=== PATIENT | male | born 1945 | race Caucasian/White ===

== ENCOUNTER 2023-03-07 13:55 | Inpatient (IN) | payer MEDICARE, OTHER, SELFPAY ==
[2023-03-07 14:42] VITALS: BP 148/82; PULSE 73; RESP 18; TEMP 36.7; O2SAT 93; BMI 39.5
[2023-03-07 15:07] LABS: Basophils Percent Auto 0.2 % (0.2-2.0); Eosinophils Absolute Auto 0.1 10^3/uL (0.0-0.7); Eosinophils Percent Auto 1.9 % (0.9-7.0); Hematocrit 41.8 % (42.0-54.0); Hemoglobin 14.3 g/dL (14.0-18.0); Immature Granulocytes Abs Auto 0.02 10^3/uL (0.00-0.03); Immature Granulocytes Pct Auto 0.3 % (0.0-0.5); Lymphocytes Absolute Auto 1.4 10^3/uL (1.2-3.8); Lymphocytes Percent Auto 23.1 % (20.5-60.0); Mean Corpuscular HGB Conc 34.2 g/dL (29.9-35.2); Mean Corpuscular Hemoglobin 32.8 pg (25.9-34.0); Mean Corpuscular Volume 95.9 fL (80.0-94.0); Mean Platelet Volume 9.3 fL (9.5-13.5); Monocytes Absolute Auto 0.7 10^3/uL (0.3-0.8); Monocytes Percent Auto 12.5 % (1.7-12.0); Neutrophils Absolute Auto 3.7 10^3/uL (1.4-6.5); Platelet Count 253 10^3/uL (150-450); Red Blood Count 4.36 10^6/uL (4.70-6.10); Red Cell Distribution Width 12.8 % (11.0-15.0); White Blood Count 5.9 10^3/uL (4.0-11.0)
--- NOTE | 2023-03-07 15:35 | US_ITS ---
The [address] [address] Patient Name: ZABRINA BRAY MRN: [id number] date: 1945 Sex: M Assigned Patient Location: MS Current Patient Location: MS Accession/Order Number: [id number] Exam Date: 03/07/2023 15:40 Report Date: 03/07/2023 16:39 At the request of: NEVIN MORA Procedure: US venous doppler LE BI Ultrasound venous duplex scan, bilateral lower extremities CLINICAL: Bilateral leg swelling for 3 months. TECHNIQUE: Miller-scale, color-flow, and Doppler examination of both legs was performed with and without provocative maneuvers. FINDINGS: Comparison: None. Sonographic examination of both lower extremity deep venous systems to include the common femoral veins, superficial femoral veins, and popliteal veins demonstrates normal compressibility, color-flow, phasic variation, and augmentation. Normal color-flow at the origins of the proximal profunda femoris veins. There is normal color-flow in the anterior tibial, posterior tibial, and peroneal veins on both sides. There is significant subcutaneous edema of both calves and also mild edema in both popliteal fossa. US/US venous doppler LE BI IMPRESSION: 1. No sonographic evidence of deep venous thrombosis in either lower extremity. 2. Significant subcutaneous edema of both calves. Electronically authenticated by: STEPHAN MARTINEZ Date: 03/07/2023 16:39
[2023-03-07 15:36] LABS: Lactate/Lactic Acid 1.1 mmol/L (0.4-2.0)
[2023-03-07 15:43] LABS: Alanine Aminotransferase 45 U/L (16-63); Albumin Globulin Ratio 0.8; Albumin Level 3.4 g/dL (3.4-5.0); Alkaline Phosphatase 72 U/L (46-116); Anion Gap 12.8; Aspartate Amino Transferase 29 U/L (15-37); BUN Creatinine Ratio 22.2; Bilirubin Total 0.5 mg/dL (0.2-1.0); C Reactive Protein <0.2 mg/dL (<=1.0); Calcium 9.5 mg/dL (8.5-10.1); Carbon Dioxide 26.2 mmol/L (21.0-32.0); Chloride 101 mmol/L (98-107); Estimated GFR (African America >60 (>=60); Estimated GFR (Non-African Ame >60 (>=60); Globulin 4.3 g/dL; Glucose 150 mg/dL (74-106); Sodium 136 mmol/L (136-145); Total Protein 7.7 g/dL (6.4-8.2)
[2023-03-07 15:44] LABS: Free T3 2.81 pg/mL (2.18-3.98); Troponin I High Sensitivity 17.9 pg/mL (4.0-76.1)
[2023-03-07] MEDS: 0.9 % SODIUM CHLORIDE 250 ML 30 ML IV (16:00)
[2023-03-07] MEDS: CIPROFLOXACIN IN 5 % DEXTROSE 400 MG/200 ML PIGGYBACK 200 MG IV (16:00)
[2023-03-07] MEDS: BUMETANIDE 10 MG in 0.9 % SODIUM CHLORIDE 160 ML 20 MG IV (17:22)
[2023-03-07 19:32] VITALS: RESP 18
[2023-03-07 20:44] VITALS: BP 164/81; PULSE 94; RESP 18; TEMP 36.8; O2SAT 91
[2023-03-07] MEDS: ACETAMINOPHEN 500 MG TABLET 1000 MG PO (20:47)
[2023-03-07] MEDS: L. ACIDOPHILUS/L.BULGARICUS 1 PACKET GRAN.PACK PO (20:47)
[2023-03-07] MEDS: POTASSIUM CHLORIDE 10 MEQ ER TABLET 20 MEQ PO (20:47)
[2023-03-07] MEDS: METOPROLOL TARTRATE 25 MG TABLET 12.5 MG PO (20:47)
[2023-03-07] MEDS: ATORVASTATIN CALCIUM 40 MG TABLET 80 MG PO (20:56)
--- NOTE | 2023-03-07 23:48 | PC.NURSE ---
Patient leaking around dalton. Noted several various sizes of clots. deflated balloon and readjusted catheter. After doing so noted increased stringy long clots irrigated with 60ml of sterile fluid. Urine flowing clear yellow for a few minutes then turned light pink
[2023-03-08 00:23] LABS: Hematocrit 40.5 % (42.0-54.0); Hemoglobin 13.9 g/dL (14.0-18.0)
[2023-03-08] MEDS: SODIUM CHLORIDE 0.9% 3,000 ML IRRIG SOLN 3000 ML IRR ×9 (01:49→18:36)
--- NOTE | 2023-03-08 01:52 | PC.NURSE ---
Urine noted pink-redish color no clots
[2023-03-08] MEDS: HYOSCYAMINE SULFATE 0.125 MG TAB.SUBL SL ×2 (03:40→18:37)
[2023-03-08] MEDS: ACETAMINOPHEN 500 MG TABLET 1000 MG PO (03:40)
[2023-03-08 04:08] VITALS: O2SAT 95
[2023-03-08 05:09] VITALS: BP 163/82; PULSE 81; RESP 20; TEMP 36.6; O2SAT 91
[2023-03-08 06:06] LABS: Basophils Percent Auto 0.1 % (0.2-2.0); Eosinophils Absolute Auto 0.1 10^3/uL (0.0-0.7); Eosinophils Percent Auto 0.8 % (0.9-7.0); Hematocrit 40.8 % (42.0-54.0); Hemoglobin 13.7 g/dL (14.0-18.0); Immature Granulocytes Abs Auto 0.03 10^3/uL (0.00-0.03); Immature Granulocytes Pct Auto 0.4 % (0.0-0.5); Lymphocytes Absolute Auto 1.3 10^3/uL (1.2-3.8); Lymphocytes Percent Auto 18.3 % (20.5-60.0); Mean Corpuscular HGB Conc 33.6 g/dL (29.9-35.2); Mean Corpuscular Hemoglobin 32.2 pg (25.9-34.0); Mean Platelet Volume 9.1 fL (9.5-13.5); Monocytes Absolute Auto 0.9 10^3/uL (0.3-0.8); Neutrophils Absolute Auto 4.9 10^3/uL (1.4-6.5); Neutrophils Percent Auto 68.4 % (43.0-75.0); Platelet Count 247 10^3/uL (150-450); Red Blood Count 4.25 10^6/uL (4.70-6.10); Red Cell Distribution Width 12.8 % (11.0-15.0); White Blood Count 7.1 10^3/uL (4.0-11.0)
[2023-03-08 06:10] LABS: Anion Gap 13.9; BUN Creatinine Ratio 15.2; Calcium 8.8 mg/dL (8.5-10.1); Carbon Dioxide 31.4 mmol/L (21.0-32.0); Chloride 97 mmol/L (98-107); Estimated GFR (African America >60 (>=60); Estimated GFR (Non-African Ame >60 (>=60); Glucose 180 mg/dL (74-106); Potassium 3.3 mmol/L (3.5-5.1); Sodium 139 mmol/L (136-145)
--- NOTE | 2023-03-08 07:21 | P.PN_ITS ---
Progress Note: Subjective Subjective Interval history: Admitted from the office with failed outpatient treatment of lower bilateral lower extremity cellulitis. Overnight had issues with bladder distention, over 500 cc postvoid, Zhou catheter placed, bleeding ensued, consultation placed to urology and a three-way catheter was instituted with continuous bladder irrigation. That overall is improving. No other complaints this morning other than he did not sleep last night Exam Constitutional Vital Signs, click to edit/add: Last Vital Signs Temp 98 F 03/08/23 05:09 Pulse 81 03/08/23 05:09 Resp 20 03/08/23 05:09 BP 163/82 H 03/08/23 05:09 Pulse Ox 91 L 03/08/23 05:09 O2 Del Method Room Air 03/08/23 05:09 Documenting provider has reviewed patient's vital signs: yes Common normals: no apparent distress Chest Common normals: inspection of chest normal Respiratory Common normals: normal respiratory effort, no retractions and clear to auscultation bilaterally Cardio Common normals: regular rate, regular rhythm and no murmurs Extremity Other: Lower extremities with the cellulitis bilaterally, less swelling, less calor, less rubor Progress Note: Objective Labs Labs: Short CBC 03/07/23 03/08/23 03/08/23 Range/Units 14:42 00:12 05:38 WBC 5.9 7.1 (4.0-11.0) 10^3/uL Hgb 14.3 13.9 L 13.7 L (14.0-18.0) g/dL Hct 41.8 L 40.5 L 40.8 L (42.0-54.0) % Plt Count 253 247 (150-450) 10^3/uL BMP 03/07/23 03/08/23 14:42 05:38 Sodium 136 139 Potassium 4.0 3.3 L Chloride 101 97 L Carbon Dioxide 26.2 31.4 BUN 18.0 16.0 Creatinine 0.81 1.05 Glucose 150 H 180 H Calcium 9.5 8.8 Liver Function 03/07/23 Range/Units 14:42 Total Bilirubin 0.5 (0.2-1.0) mg/dL AST 29 (15-37) U/L ALT 45 (16-63) U/L Alkaline Phosphatase 72 (46-116) U/L Albumin 3.4 (3.4-5.0) g/dL Progress Note: A&P Assessment and Plan (1) Bilateral lower leg cellulitis: (2) Hx of CABG: (3) Hematuria: (4) Bladder outlet obstruction: (5) Iron deficiency anemia: Plan Bilateral lower extremity cellulitis-DVT ruled out by ultrasound, was placed on cephalexin as an outpatient. Change patient to clindamycin and Cipro here IV. If effective can be transition to that p.o. starting tomorrow Fluid overload-Bumex drip effective with 4 L out. No heart failure-BNP was negative. Continue diuresis today Hematuria-secondary to bladder outlet obstruction and bladder distention, improving with CBI, consult to urology placed Hypokalemia-supplement Patient initially placed in observation, now with hematuria and CBI, patient will be changed to inpatient status. Patient likely 2 to 3-day hospital stay as a minimum
[2023-03-08 08:17] LABS: INR 1.06; Partial Thromboplastin Time 28.4 sec (22.3-36.2); Prothrombin Time 11.2 sec (9.0-11.6)
[2023-03-08] MEDS: L. ACIDOPHILUS/L.BULGARICUS 1 PACKET GRAN.PACK PO ×2 (08:24→21:08)
[2023-03-08] MEDS: FISH OIL 1,000 MG CAPSULE 1000 MG PO (08:25)
[2023-03-08] MEDS: ASCORBIC ACID 500 MG TABLET PO (08:25)
[2023-03-08] MEDS: METOPROLOL TARTRATE 25 MG TABLET 12.5 MG PO ×2 (08:25→21:21)
[2023-03-08] MEDS: POTASSIUM CHLORIDE 10 MEQ ER TABLET 20 MEQ PO ×2 (08:25→21:08)
[2023-03-08] MEDS: CHOLECALCIFEROL (VITAMIN D3) 25 MCG/1,000 UNITS TABLET 100 MCG PO (08:25)
[2023-03-08] MEDS: MULTIVITAMIN TABLET 1 TAB PO (08:25)
[2023-03-08] MEDS: BUMETANIDE 10 MG in 0.9 % SODIUM CHLORIDE 160 ML 20 MG IV (08:26)
[2023-03-08] MEDS: OXYBUTYNIN chloride 5 MG TABLET 10 MG PO ×2 (09:26→21:08)
--- NOTE | 2023-03-08 10:51 | CM.NOTE ---
Important Message From Medicare discussed with pt, pt verbalizes understanding and signs paper. Original given to pt and copy placed on pt's chart.
[2023-03-08 11:08] LABS: Glucometer 143 mg/dL (74-106)
[2023-03-08 11:18] VITALS: O2SAT 92
--- NOTE | 2023-03-08 11:23 | CT_ITS ---
[address] [address] Patient Name: ZABRINA BRAY MRN: [id number] date: 1945 Sex: M Assigned Patient Location: MS Current Patient Location: Accession/Order Number: [id number] Exam Date: 03/08/2023 15:05 Report Date: 03/08/2023 16:09 At the request of: CARLO ALDANA Procedure: CT abdomen pelvis wo/w con Waiting for axial delayed phase images. EXAM: CT abdomen pelvis wo/w con; [id number] REASON FOR EXAM: hematuria TECHNIQUE: Helical CT images of the abdomen and pelvis were obtained both before and after the administration of IV contrast. Multiplanar reformats were generated at the scanner. Dose reduction technique used: Automated exposure control and/or adjustment of the mA and/or kV according to patient size and/or use of iterative reconstruction technique. COMPARISON: None. FINDINGS: Visualized Chest: No pleural effusion or any significant pulmonary findings. Abdomen: Liver: Within normal limits. No enhancing mass. Gallbladder: No calcified gallstones. No acute inflammatory changes. Bile Ducts: No significant biliary ductal dilatation. Pancreas: No mass, ductal dilatation, or inflammatory changes. Spleen: No splenomegaly or focal lesion. Adrenals: -Low-density benign left adrenal adenoma measuring 18 x 11 mm (series 10 image 38). -No right adrenal nodule. Kidneys/ureters: -Nonobstructing 4 mm stone in the lower pole of the left kidney. Additional punctate nonobstructing stone in the lower pole of the left kidney. -Benign nonenhancing left renal cyst measuring 14 mm (series 10 image 57). -No enhancing mass. -No hydronephrosis. -No suspicious filling defect within the intrarenal collecting systems or within the opacified portions of the kidneys or bladder. Vascular: No aortic aneurysm. Lymph Nodes: No adenopathy. Abdominal Wall: Small fat-containing bilateral inguinal hernias and medium sized fat-containing periumbilical hernia. Pelvis: The bladder is decompressed with a Zhou catheter. Bladder stone. Enlarged prostate. Bowel/Peritoneal Cavity/Mesentery: -No enhancing mass. -No bowel obstruction or significant ileus. -No acute inflammatory changes. -No free air or free fluid. Musculoskeletal: No acute fracture or suspicious osseous lesion. CT/CT abdomen pelvis wo/w con IMPRESSION: 1. There are 2 small nonobstructing stones in the left kidney. 2. No suspicious filling defect within the upper urinary collecting systems. Electronically authenticated by: GHULAM PAGE Date: 03/08/2023 16:09
[2023-03-08 13:58] VITALS: BP 113/68; PULSE 106; RESP 18; TEMP 36.8; O2SAT 95
[2023-03-08] MEDS: CIPROFLOXACIN IN 5 % DEXTROSE 400 MG/200 ML PIGGYBACK 200 MG IV (16:21)
[2023-03-08 16:39] LABS: Glucometer 226 mg/dL (74-106)
[2023-03-08] MEDS: CLINDAMYCIN PHOSPHATE/D5W 600 MG/50 ML PIGGYBACK 100 MG IV (18:33)
[2023-03-08 19:55] VITALS: O2SAT 93
[2023-03-08] MEDS: CALCIUM CARBONATE 500 MG (200MG ELEMENTAL) TAB CHEW 1000 MG PO (20:02)
[2023-03-08] MEDS: TEMAZEPAM 15 MG CAPSULE PO (21:08)
[2023-03-08] MEDS: ATORVASTATIN CALCIUM 40 MG TABLET 80 MG PO (21:08)
[2023-03-08 21:09] LABS: Glucometer 203 mg/dL (74-106)
[2023-03-08 21:16] VITALS: BP 141/90; PULSE 110; RESP 20; TEMP 37; O2SAT 92
[2023-03-09] MEDS: CLINDAMYCIN PHOSPHATE/D5W 600 MG/50 ML PIGGYBACK 100 MG IV ×2 (00:17→05:09)
[2023-03-09] MEDS: 0.9 % SODIUM CHLORIDE 250 ML 30 ML IV (00:18)
[2023-03-09 05:26] VITALS: BP 135/77; PULSE 90; RESP 18; TEMP 36.7; O2SAT 91
[2023-03-09 07:41] LABS: Glucometer 187 mg/dL (74-106)
--- NOTE | 2023-03-09 07:50 | P.PN_ITS ---
Progress Note: Subjective Subjective Interval history: Had a good night overnight, slept well, although patient notes the swelling is improved in his legs overall sensation has not improved Exam Constitutional Vital Signs, click to edit/add: Last Vital Signs Temp 98.0 F 03/09/23 05:26 Pulse 90 03/09/23 05:26 Resp 18 03/09/23 05:26 BP 135/77 03/09/23 05:26 Pulse Ox 91 L 03/09/23 05:26 O2 Del Method Room Air 03/09/23 05:26 Documenting provider has reviewed patient's vital signs: yes Common normals: no apparent distress Chest Common normals: inspection of chest normal Respiratory Common normals: normal respiratory effort, no retractions and clear to auscultation bilaterally Cardio Common normals: regular rate, regular rhythm and no murmurs Extremity Other: Lower extremities with the cellulitis bilaterally, swelling improved from admission but the erythema has not changed from previous day Progress Note: A&P Assessment and Plan (1) Bilateral lower leg cellulitis: (2) Hx of CABG: (3) Hematuria: (4) Bladder outlet obstruction: (5) Iron deficiency anemia: Plan Bilateral lower extremity cellulitis-DVT ruled out by ultrasound, was placed on cephalexin as an outpatient. Does have some slight improvement from admission but no improvement from previous day, will change antibiotics today. Likely 2 more day hospitalization Fluid overload-Bumex drip effective with 12 L out-change patient to IV Lasix, that is what he takes at home and his oral Lasix. Hematuria-secondary to bladder outlet obstruction and bladder distention, improving with CBI, consult to urology placed Hypokalemia-supplement Iron deficient anemia-monitor daily is down somewhat today Patient initially placed in observation, now with hematuria and CBI, patient will be changed to inpatient status. Patient likely 2 to 3-day hospital stay as a minimum
[2023-03-09] MEDS: MULTIVITAMIN TABLET 1 TAB PO (08:08)
[2023-03-09] MEDS: FUROSEMIDE 40 MG/4 ML VIAL IVP ×2 (08:08→20:06)
[2023-03-09] MEDS: METOPROLOL TARTRATE 25 MG TABLET 12.5 MG PO ×2 (08:09→20:08)
[2023-03-09] MEDS: FISH OIL 1,000 MG CAPSULE 1000 MG PO (08:09)
[2023-03-09] MEDS: ASCORBIC ACID 500 MG TABLET PO (08:09)
[2023-03-09] MEDS: OXYBUTYNIN chloride 5 MG TABLET 10 MG PO ×2 (08:09→20:09)
[2023-03-09] MEDS: POTASSIUM CHLORIDE 10 MEQ ER TABLET 20 MEQ PO ×2 (08:09→20:08)
[2023-03-09] MEDS: L. ACIDOPHILUS/L.BULGARICUS 1 PACKET GRAN.PACK PO ×2 (08:09→20:09)
[2023-03-09] MEDS: CHOLECALCIFEROL (VITAMIN D3) 25 MCG/1,000 UNITS TABLET 100 MCG PO (08:09)
[2023-03-09 08:25] LABS: Anion Gap 7.4; BUN Creatinine Ratio 19.4; Calcium 9.7 mg/dL (8.5-10.1); Carbon Dioxide 34.8 mmol/L (21.0-32.0); Chloride 94 mmol/L (98-107); Estimated GFR (African America >60 (>=60); Estimated GFR (Non-African Ame >60 (>=60); Glucose 155 mg/dL (74-106); Potassium 3.2 mmol/L (3.5-5.1); Sodium 133 mmol/L (136-145)
[2023-03-09] MEDS: VANCOMYCIN HCL 1,250 MG in 0.9 % SODIUM CHLORIDE 250 ML 250 MG IV (09:28)
[2023-03-09 10:51] VITALS: O2SAT 92
[2023-03-09 11:03] LABS: Glucometer 159 mg/dL (74-106)
[2023-03-09] MEDS: PIPERACILLIN SODIUM/TAZOBACTAM 3.375 GM in 0.9 % SODIUM CHLORIDE 50 ML IV ×2 (11:30→20:06)
[2023-03-09 14:15] VITALS: BP 127/73; PULSE 85; RESP 18; TEMP 36.9; O2SAT 86
[2023-03-09 14:30] VITALS: O2SAT 93
[2023-03-09 16:02] LABS: Glucometer 130 mg/dL (74-106)
--- NOTE | 2023-03-09 16:11 | PM.CN ---
Consult Note: [facility] Data of Consult Consult date: 03/09/23 Requesting Physician: Dexter Rodriguez MD Primary Care Provider: Dexter Rodriguez MD Consult Narrative Reason for consult: gross hematuria Narrative: 77 yo old male with history of BPH with LUTS/nocturia and recurrent cellulitis is admitted with failed outpatient treatment of lower bilateral lower extremity cellulitis. He is being managed with IV antibiotics and diuretics. His first night, he developed bladder distention, over 500 cc postvoid, Dalton catheter placed, gross hematuria was noted. A 24Fr 3way dalton catheter was inserted by nursing staff, manually irrigated and CBI was started. CT Urogram was obtained showing no upper tract or bladder filling defects concerning for malignancy. 4 mm left lower pole stone, additional few punctate stones. Denies UTI sx however no UA or culture noted. Labs wnl His urine has cleared on CBI, currently off. He denies bladder/flank pain or new urinary issues. Denies prior hematuria. Baseline frequency and nocturia sometimes q1h at night. Not on BPH meds at home. Seen Urology in the distant past, thinks he had a prostate biopsy done. Otherwise, no urologic procedures. On Plavix, ASA for extensive CAD history, most recently had heart cath and stent placement end of January. Antiplatelet therapy currently on hold. cc:: CC: Dexter Rodriguez MD Review of Systems ROS Status of ROS 10 or more systems reviewed and unremarkable except as noted in history and below Constitutional Denies: fever or chills Eyes Denies: change in vision or blurry vision Ears, nose, mouth, and throat Denies: throat pain or difficulty swallowing Cardiovascular Reports: edema; Denies: chest pain or palpitations Respiratory Denies: shortness of breath or cough Gastrointestinal Denies: abdominal pain, nausea or vomiting Genitourinary Reports: blood in urine; Denies: painful urination Musculoskeletal Reports: extremity pain and extremity swelling; Denies: back pain Integumentary/Breast Reports: redness and skin swelling Neurological Denies: headache or numbness in extremities Psychiatric Denies: anxiety or memory loss [facility] Medical History Surgical History Family History Mother Family history of CHF (congestive heart failure) Family history of myocardial infarction Family history of hypertension Father Family history of COPD (chronic obstructive pulmonary disease) Social History Within the past year, how often did you have a drink containing alcohol: monthly or less Smoking status: Former smoker Non-prescribed substance use: denies use Meds Home Medications and Allergies Home Medications Medication Instructions Recorded Confirmed Type ascorbic acid (vitamin C) 500 mg 500 mg PO DAILY 03/07/23 03/07/23 History capsule,extended release (Vitamin C) aspirin 81 mg tablet,delayed 81 mg PO DAILY 03/07/23 03/07/23 History release (Adult Aspirin Regimen) atorvastatin 80 mg tablet 80 mg PO .at bedtime 03/07/23 03/07/23 History biotin 1 mg capsule 1 mg PO DAILY 03/07/23 03/07/23 History cholecalciferol (vitamin D3) 25 4,000 unit PO BID 03/07/23 03/07/23 History mcg (1,000 unit) capsule clopidogrel 75 mg tablet 75 mg PO DAILY 03/07/23 03/07/23 History furosemide 40 mg tablet 40 mg PO DAILY 03/07/23 03/07/23 History metoprolol tartrate 25 mg tablet 12.5 mg PO Q12H 03/07/23 03/07/23 History multivitamin (Daily Multi-Vitamin 1 tab PO DAILY 03/07/23 03/07/23 History tablet) omega 6-bov-jgj-fish oil 1,000 mg 2 cap PO DAILY 03/07/23 03/07/23 History (120 mg-180 mg) capsule (Fish Oil) Allergies Allergy/AdvReac Type Severity Reaction Status Date / Time No Known Drug Allergies Allergy Verified 03/07/23 16:25 Exam Narrative Exam Narrative: No acute distress, appears nontoxic Nonlabored respirations, symmetric chest rise, on room air Normal rate and rhythm, mild-mod BL lower ext peripheral edema Abd soft, non tender, non distended No CVA tenderness to palpation, no suprapubic tenderness palpation. 24Fr [address] dalton to gravity, clear light johnna urine in tubing, CBI inflow capped Moves all extremities, no deformities Alert and oriented x 4, no acute focal deficits Skin dry, intact. BLE venous stasis skin changes and erythema of ankles Appropriate, cooperative Constitutional Vital Signs, click to edit/add: Last Vital Signs Temp 98.5 F 03/09/23 14:15 Pulse 85 03/09/23 14:15 Resp 18 03/09/23 14:15 BP 127/73 03/09/23 14:15 Pulse Ox 86 L 03/09/23 14:15 O2 Del Method Room Air 03/09/23 14:15 Results Labs Labs: [facility] 03/09/23 07:51 Sodium 133 L Potassium 3.2 L Chloride 94 L Carbon Dioxide 34.8 H BUN 19.0 H Creatinine 0.98 Glucose 155 H Calcium 9.[address] scan - abdomen: Attestation: I personally reviewed and interpreted this imaging study as follows: My impression: No hydronephrosis or upper tract filling defects. Dalton in appropriate position. No clots or bladder tumors noted. Significantly enlarged prostate. Radiologist's impression: EXAM: CT abdomen pelvis wo/w con; [id number] REASON FOR EXAM: hematuria TECHNIQUE: Helical CT images of the abdomen and pelvis were obtained both before and after the administration of IV contrast. Multiplanar reformats were generated at the scanner. Dose reduction technique used: Automated exposure control and/or adjustment of the mA and/or kV according to patient size and/or use of iterative reconstruction technique. COMPARISON: None. FINDINGS: Visualized Chest: No pleural effusion or any significant pulmonary findings. Abdomen: Liver: Within normal limits. No enhancing mass. Gallbladder: No calcified gallstones. No acute inflammatory changes. Bile Ducts: No significant biliary ductal dilatation. Pancreas: No mass, ductal dilatation, or inflammatory changes. Spleen: No splenomegaly or focal lesion. Adrenals: -Low-density benign left adrenal adenoma measuring 18 x 11 mm (series 10 image 38). -No right adrenal nodule. Kidneys/ureters: -Nonobstructing 4 mm stone in the lower pole of the left kidney. Additional punctate nonobstructing stone in the lower pole of the left kidney. -Benign nonenhancing left renal cyst measuring 14 mm (series 10 image 57). -No enhancing mass. -No hydronephrosis. -No suspicious filling defect within the intrarenal collecting systems or within the opacified portions of the kidneys or bladder. Vascular: No aortic aneurysm. Lymph Nodes: No adenopathy. Abdominal Wall: Small fat-containing bilateral inguinal hernias and medium sized fat-containing periumbilical hernia. Pelvis: The bladder is decompressed with a Dalton catheter. Bladder stone. Enlarged prostate. Bowel/Peritoneal Cavity/Mesentery: -No enhancing mass. -No bowel obstruction or significant ileus. -No acute inflammatory changes. -No free air or free fluid. Musculoskeletal: No acute fracture or suspicious osseous lesion. CT/CT abdomen pelvis wo/w con IMPRESSION: 1. There are 2 small nonobstructing stones in the left kidney. 2. No suspicious filling defect within the upper urinary collecting systems. Electronically authenticated by: GHULAM PAGE Date: 03/08/2023 16:09 Assessment and Plan Assessment and Plan (1) Hematuria: (2) Bladder outlet obstruction: (3) Antiplatelet or antithrombotic long-term use: Assessment and Plan: 77 yo M as above with significant cardiac history on Plavix/ASA and baseline BPH with LUTS not medically managed who is admitted for BLE cellulitis treatment and developed urinary retention and gross hematuria. Discussed findings and workup with pt as well as potential etiologies of hematuria including prostatic, infection, retention, and malignancy. Given large volume PVR and negative CTU, may be hematuria ex vacuo exacerbated by dual antiplatelet therapy. Hematuria resolved on CBI. -Ok to restart Plavix/ASA due to recent heart stent (Jan 2023). If hematuria recurs, manually irrigate and restart CBI. Risk of stent clotting is high this soon after surgery, however will defer to primary/cardiology for risk vs benefit. -Tamsulosin for BPH with obstruction, cont at home -Cont dalton x 1 week or until mobility improved for pt to void at home -Follow up in 1-2 weeks for possible dalton removal/voiding trial and to schedule cystoscopy/cytology for further evaluation of hematuria.
--- NOTE | 2023-03-09 17:19 | XR_ITS ---
[address] [address] Patient Name: ZABRINA BRAY MRN: [id number] date: 1945 Sex: M Assigned Patient Location: MS Current Patient Location: MS Accession/Order Number: [id number] Exam Date: 03/09/2023 17:50 Report Date: 03/09/2023 18:17 At the request of: NEVIN MORA Procedure: XR chest 1V EXAMINATION: XR chest 1V HISTORY: Shortness of breath COMPARISON: Chest x-rays 04/27/2022 TECHNIQUE: Portable chest FINDINGS: The lung parenchyma is free of consolidation or infiltrate. No pneumothorax or pleural effusion. The cardiac, mediastinal and hilar contours are normal. The visualized osseous structures exhibit no gross abnormality. XR/XR chest 1V IMPRESSION: No acute cardiopulmonary abnormality. Electronically authenticated by: MONI LLANOS Date: 03/09/2023 18:17
[2023-03-09] MEDS: TRAMADOL HCL 50 MG TABLET PO (20:07)
[2023-03-09] MEDS: TEMAZEPAM 15 MG CAPSULE PO (20:08)
[2023-03-09] MEDS: HYOSCYAMINE SULFATE 0.125 MG TAB.SUBL SL (20:09)
[2023-03-09] MEDS: ATORVASTATIN CALCIUM 40 MG TABLET 80 MG PO (20:09)
[2023-03-09 20:28] VITALS: BP 157/83; PULSE 88; RESP 18; TEMP 36.7; O2SAT 92
[2023-03-09 20:37] VITALS: PULSE 89; RESP 18; O2SAT 92
[2023-03-09] MEDS: IPRATROPIUM/ALBUTEROL SULFATE 3 ML AMPUL.NEB IH (20:37)
[2023-03-09 20:46] LABS: Glucometer 179 mg/dL (74-106)
[2023-03-09] MEDS: VANCOMYCIN HCL 1,250 MG in 0.9 % SODIUM CHLORIDE 250 ML 200 MG IV (21:23)
[2023-03-10] VITALS (9 sets, daily range): BP systolic 115–136; BP diastolic 68–82; PULSE 72–100; RESP 16–20; TEMP 36.6–37; O2SAT 91–97
[2023-03-10] MEDS: PIPERACILLIN SODIUM/TAZOBACTAM 3.375 GM in 0.9 % SODIUM CHLORIDE 50 ML IV ×3 (03:19→20:20)
[2023-03-10 05:43] LABS: Basophils Percent Auto 0.3 % (0.2-2.0); Eosinophils Absolute Auto 0.1 10^3/uL (0.0-0.7); Eosinophils Percent Auto 1.9 % (0.9-7.0); Hematocrit 41.3 % (42.0-54.0); Immature Granulocytes Abs Auto 0.02 10^3/uL (0.00-0.03); Immature Granulocytes Pct Auto 0.3 % (0.0-0.5); Lymphocytes Absolute Auto 1.4 10^3/uL (1.2-3.8); Lymphocytes Percent Auto 20.3 % (20.5-60.0); Mean Corpuscular HGB Conc 33.9 g/dL (29.9-35.2); Mean Corpuscular Hemoglobin 32.6 pg (25.9-34.0); Mean Corpuscular Volume 96.3 fL (80.0-94.0); Mean Platelet Volume 9.5 fL (9.5-13.5); Monocytes Absolute Auto 1.1 10^3/uL (0.3-0.8); Monocytes Percent Auto 15.7 % (1.7-12.0); Neutrophils Absolute Auto 4.2 10^3/uL (1.4-6.5); Neutrophils Percent Auto 61.5 % (43.0-75.0); Platelet Count 268 10^3/uL (150-450); Red Blood Count 4.29 10^6/uL (4.70-6.10); Red Cell Distribution Width 12.9 % (11.0-15.0); White Blood Count 6.9 10^3/uL (4.0-11.0)
[2023-03-10 06:19] LABS: Troponin I High Sensitivity 25.7 pg/mL (4.0-76.1)
[2023-03-10 06:22] LABS: Anion Gap 9.9; BUN Creatinine Ratio 20.8; Calcium 8.8 mg/dL (8.5-10.1); Carbon Dioxide 33.3 mmol/L (21.0-32.0); Chloride 96 mmol/L (98-107); Estimated GFR (African America >60 (>=60); Estimated GFR (Non-African Ame >60 (>=60); Glucose 145 mg/dL (74-106); Potassium 3.2 mmol/L (3.5-5.1); Sodium 136 mmol/L (136-145)
--- NOTE | 2023-03-10 07:52 | XR_ITS ---
[address] [address] Patient Name: ZABRINA BRAY MRN: [id number] date: 1945 Sex: M Assigned Patient Location: MS Current Patient Location: MS Accession/Order Number: [id number] Exam Date: 03/10/2023 08:15 Report Date: 03/10/2023 08:44 At the request of: NEVIN MORA Procedure: XR knee RT 3V PROCEDURE: XR knee RT 3V HISTORY: acute knee pain after fall COMPARISON: None. FINDINGS: BONES:Marked narrowing of medial joint space with near [id number] contact, and mild lateral subluxation of the tibial plateau in relation to the femoral condyles.. Periarticular degenerative osteophytes. No fracture. SOFT TISSUES:No visible soft tissue swelling. EFFUSION:Large joint effusion. OTHER: Negative. XR/XR knee RT 3V IMPRESSION: 1. Large joint effusion and marked degenerative joint disease. 2. No fracture. Electronically authenticated by: SAHIL LEROY Date: 03/10/2023 08:44
--- NOTE | 2023-03-10 07:58 | P.PN_ITS ---
Progress Note: Subjective Subjective Interval history: Denies any dyspnea. Legs feel better, his biggest complaint is his right knee Exam Constitutional Vital Signs, click to edit/add: Last Vital Signs Temp 98.6 F 03/10/23 04:58 Pulse 89 03/10/23 04:58 Resp 20 03/10/23 04:58 BP 128/68 03/10/23 04:58 Pulse Ox 94 L 03/10/23 04:58 O2 Del Method Nasal Cannula 03/10/23 04:58 O2 Flow Rate 2 03/10/23 04:58 Documenting provider has reviewed patient's vital signs: yes Common normals: no apparent distress Chest Common normals: inspection of chest normal Respiratory Common normals: normal respiratory effort, no retractions and clear to auscultation bilaterally Cardio Common normals: regular rate, regular rhythm and no murmurs Extremity Other: Lower extremities with the cellulitis bilaterally, swelling improved from admission but the erythema has not changed from previous day Progress Note: Objective Labs Labs: Short CBC 03/10/23 Range/Units 04:20 WBC 6.9 (4.0-11.0) 10^3/uL Hgb 14.0 (14.0-18.0) g/dL Hct 41.3 L (42.0-54.0) % Plt Count 268 (150-450) 10^3/uL BMP 03/09/23 03/10/23 07:51 04:20 Sodium 133 L 136 Potassium 3.2 L 3.2 L Chloride 94 L 96 L Carbon Dioxide 34.8 H 33.3 H BUN 19.0 H 21.0 H Creatinine 0.98 1.01 Glucose 155 H 145 H Calcium 9.7 8.8 Progress Note: A&P Assessment and Plan (1) Hematuria: (2) Bladder outlet obstruction: (3) Antiplatelet or antithrombotic long-term use: (4) Iron deficiency anemia: Plan Bilateral lower extremity cellulitis-DVT ruled out by ultrasound, was placed on cephalexin as an outpatient. Does look improved from yesterday's change antibiotics to Zosyn and vancomycin. Continue that 1 additional day. Fluid overload-Bumex drip effective with 12 L out-was changed to IV Lasix yesterday no significant urinary output. We will repeat Bumex drip again today as he does have some persistent edema right greater than left lower extremity Hematuria-secondary to bladder outlet obstruction and bladder distention, improving with CBI, consult to urology placed-restarted Plavix will restart aspirin as well Hypokalemia-supplement Iron deficient anemia-monitor daily is down somewhat today Acute hypoxia yesterday-we will try to wean off of supplemental oxygen, repeat CAT scan was possible later today if not improving, chest x-ray was clear Patient initially placed in observation, now with hematuria and CBI, patient will be changed to inpatient status. Patient likely 2 to 3-day hospital stay as a minimum
[2023-03-10] MEDS: VANCOMYCIN HCL 1,250 MG in 0.9 % SODIUM CHLORIDE 250 ML 250 MG IV (09:20)
[2023-03-10] MEDS: FISH OIL 1,000 MG CAPSULE 1000 MG PO (09:21)
[2023-03-10] MEDS: CHOLECALCIFEROL (VITAMIN D3) 25 MCG/1,000 UNITS TABLET 100 MCG PO (09:21)
[2023-03-10] MEDS: ACETAMINOPHEN 500 MG TABLET 1000 MG PO ×2 (09:21→21:51)
[2023-03-10] MEDS: BUMETANIDE 10 MG in 0.9 % SODIUM CHLORIDE 160 ML 20 MG IV (09:21)
[2023-03-10] MEDS: OXYBUTYNIN chloride 5 MG TABLET 10 MG PO ×2 (09:23→20:20)
[2023-03-10] MEDS: POTASSIUM CHLORIDE 10 MEQ ER TABLET 20 MEQ PO ×2 (09:23→20:20)
[2023-03-10] MEDS: ASPIRIN 81 MG TAB.CHEW PO (09:24)
[2023-03-10] MEDS: MULTIVITAMIN TABLET 1 TAB PO (09:24)
[2023-03-10] MEDS: L. ACIDOPHILUS/L.BULGARICUS 1 PACKET GRAN.PACK PO ×2 (09:24→20:20)
[2023-03-10] MEDS: ASCORBIC ACID 500 MG TABLET PO (09:25)
[2023-03-10] MEDS: CLOPIDOGREL BISULFATE 75 MG TABLET PO (09:25)
[2023-03-10] MEDS: METOPROLOL TARTRATE 25 MG TABLET 12.5 MG PO ×2 (09:27→20:25)
[2023-03-10] MEDS: IPRATROPIUM/ALBUTEROL SULFATE 3 ML AMPUL.NEB IH ×2 (10:08→16:32)
[2023-03-10 11:56] LABS: Glucometer 172 mg/dL (74-106)
[2023-03-10 17:35] LABS: Glucometer 208 mg/dL (74-106)
[2023-03-10] MEDS: INSULIN ASPART 300 UNIT/3 ML PEN SUBQ ×2 (17:44→21:55)
[2023-03-10] MEDS: CALCIUM CARBONATE 500 MG (200MG ELEMENTAL) TAB CHEW 1000 MG PO (19:46)
[2023-03-10 19:54] LABS: Glucometer 245 mg/dL (74-106)
[2023-03-10] MEDS: TEMAZEPAM 15 MG CAPSULE PO (21:50)
[2023-03-10] MEDS: ATORVASTATIN CALCIUM 40 MG TABLET 80 MG PO (21:51)
[2023-03-11] MEDS: VANCOMYCIN HCL 1,250 MG in 0.9 % SODIUM CHLORIDE 250 ML 250 MG IV ×2 (00:31→09:18)
[2023-03-11] MEDS: PIPERACILLIN SODIUM/TAZOBACTAM 3.375 GM in 0.9 % SODIUM CHLORIDE 50 ML IV ×2 (03:59→13:28)
[2023-03-11 04:51] LABS: Basophils Percent Auto 0.3 % (0.2-2.0); Eosinophils Absolute Auto 0.2 10^3/uL (0.0-0.7); Eosinophils Percent Auto 2.6 % (0.9-7.0); Hematocrit 43.8 % (42.0-54.0); Hemoglobin 14.8 g/dL (14.0-18.0); Immature Granulocytes Abs Auto 0.02 10^3/uL (0.00-0.03); Immature Granulocytes Pct Auto 0.3 % (0.0-0.5); Lymphocytes Absolute Auto 1.5 10^3/uL (1.2-3.8); Lymphocytes Percent Auto 22.7 % (20.5-60.0); Mean Corpuscular HGB Conc 33.8 g/dL (29.9-35.2); Mean Corpuscular Hemoglobin 32.3 pg (25.9-34.0); Mean Corpuscular Volume 95.6 fL (80.0-94.0); Mean Platelet Volume 9.4 fL (9.5-13.5); Monocytes Percent Auto 15.2 % (1.7-12.0); Neutrophils Absolute Auto 3.9 10^3/uL (1.4-6.5); Neutrophils Percent Auto 58.9 % (43.0-75.0); Platelet Count 293 10^3/uL (150-450); Red Blood Count 4.58 10^6/uL (4.70-6.10); Red Cell Distribution Width 12.8 % (11.0-15.0); White Blood Count 6.5 10^3/uL (4.0-11.0)
[2023-03-11 05:04] LABS: Anion Gap 10.2; BUN Creatinine Ratio 21.1; Calcium 9.3 mg/dL (8.5-10.1); Carbon Dioxide 35.6 mmol/L (21.0-32.0); Chloride 95 mmol/L (98-107); Estimated GFR (African America >60 (>=60); Estimated GFR (Non-African Ame >60 (>=60); Glucose 123 mg/dL (74-106); Sodium 138 mmol/L (136-145)
[2023-03-11 05:17] LABS: Potassium 2.8 mmol/L (3.5-5.1)
[2023-03-11 05:34] VITALS: BP 148/76; PULSE 75; RESP 18; TEMP 36.6; O2SAT 91
[2023-03-11 08:00] VITALS: RESP 18
--- NOTE | 2023-03-11 08:00 | P.DS_ITS ---
DS: Providers Provider Date of admission: 03/08/23 07:26 Primary care physician: Dexter Rodriguez MD Consults: 03/07/23 14:02 Physical Therapy Eval and Treat Routine Reason for consultation: balance Has provider been notified: No 03/08/23 Consult to Urology Routine Consulting Provider: Moreno Min Reason for consultation: hematuria Has provider been notified: No DS: Diagnosis Discharge Diagnosis (1) Hematuria: (2) Bladder outlet obstruction: (3) Antiplatelet or antithrombotic long-term use: (4) Iron deficiency anemia: Plan Bilateral lower extremity cellulitis- Fluid overload- Hematuria- Hypokalemia- Iron deficient anemia Acute hypoxia yesterday DS: Summary Hospital Course Hospital Course: Patient was treated as an outpatient for bilateral lower extremity cellulitis complicated by fluid overload. His heart failure blood work-up was negative. Plain exam was clear. He did have an episode of hypoxia which could be related to small pleural effusions. Patient was diuresed on 3 occasions with Bumex drip. Renal function stayed stable. His edema is much improved. The only other complication was bladder outlet obstruction which resulted in hematuria from the bladder being overstretched. Injuries essentially resolved at the time of discharge. Follow-up with urology for that. Bilateral lower extremity cellulitis is much improved but did not respond to Cleocin or Cipro. Was improved with vancomycin and Zosyn. We will send patient home with doxycycline and Augmentin. Medications see list. Follow-up with me in the office next week. Time Spent with Patient Time attestation: Total time spent providing and/or coordinating discharge services: Exam Constitutional Vital Signs, click to edit/add: Last Vital Signs Temp 97.9 F 03/11/23 05:34 Pulse 75 03/11/23 05:34 Resp 18 03/11/23 05:34 BP 148/76 H 03/11/23 05:34 Pulse Ox 91 L 03/11/23 05:34 O2 Del Method Room Air 03/11/23 05:34 O2 Flow Rate 1 03/10/23 14:00 Documenting provider has reviewed patient's vital signs: yes Common normals: no apparent distress Chest Common normals: inspection of chest normal Respiratory Common normals: normal respiratory effort, no retractions and clear to auscultation bilaterally Cardio Common normals: regular rate, regular rhythm and no murmurs Extremity Other: Lower extremities with the cellulitis bilaterally, swelling and erythema much improved DS: Data Data Completed and Pending Labs on day of discharge: Labs from last 24 hours 03/11/23 03/10/23 03/10/23 04:09 19:52 17:33 WBC 6.5 RBC 4.58 L Hgb 14.8 Hct 43.8 MCV 95.6 H MCH 32.3 MCHC 33.8 RDW 12.8 Plt Count 293 MPV 9.4 L Neut % (Auto) 58.9 Lymph % (Auto) 22.7 [place] % (Auto) 15.2 H Eos % (Auto) 2.6 Baso % (Auto) 0.3 Neut # (Auto) 3.9 Lymph # (Auto) 1.5 [place] # (Auto) 1.0 H Eos # (Auto) 0.2 Baso # (Auto) 0.0 Abs Immat Gran (auto) 0.02 Imm/Tot Granulo (auto) 0.3 Sodium 138 Potassium 2.8 L* Chloride 95 L Carbon Dioxide 35.6 H Anion Gap 10.2 BUN 23.0 H Creatinine 1.09 Est GFR ( Amer) >60 Est GFR (Non-Af Amer) >60 BUN/Creatinine Ratio 21.1 Glucose 123 H Calcium 9.3 POC Glucose 245 H 208 H 03/10/23 11:55 WBC RBC Hgb Hct MCV MCH MCHC RDW Plt Count MPV Neut % (Auto) Lymph % (Auto) [place] % (Auto) Eos % (Auto) Baso % (Auto) Neut # (Auto) Lymph # (Auto) [place] # (Auto) Eos # (Auto) Baso # (Auto) Abs Immat Gran (auto) Imm/Tot Granulo (auto) Sodium Potassium Chloride Carbon Dioxide Anion Gap BUN Creatinine Est GFR ( Amer) Est GFR (Non-Af Amer) BUN/Creatinine Ratio Glucose Calcium POC Glucose 172 H Preliminary micro results at discharge 03/07/23 14:55 - Preliminary Blood NO GROWTH AT 36-48 HOURS. FINAL TO FOLLOW. 03/07/23 14:42 Blood Culture Result 1 - Preliminary Blood NO GROWTH AT 36-48 HOURS. FINAL TO FOLLOW. Discharge Plan Discharge Disposition: Home, Self-Care Condition: Fair Discharge Medications: New furosemide [Lasix] 40 mg tablet 40 mg PO BID Qty: 60 11RF potassium chloride [Klor-Con M20] 20 mEq tablet,ER particles/crystals 20 meq PO BID Qty: 60 11RF temazepam [Restoril] 15 mg capsule 15 mg PO .qhs Qty: 30 2RF doxycycline monohydrate 100 mg capsule 100 mg PO BID 14 Days Qty: 28 0RF amoxicillin-pot clavulanate 875-125 mg tablet 1 tab PO Q12H Qty: 28 0RF Continued atorvastatin 80 mg tablet 80 mg PO .at bedtime clopidogrel 75 mg tablet 75 mg PO DAILY metoprolol tartrate 25 mg tablet 12.5 mg PO Q12H biotin 1 mg capsule 1 mg PO DAILY omega 3-klb-goc-fish oil [Fish Oil] 1,000 mg (120 mg-180 mg) capsule 2 cap PO DAILY multivitamin [Daily Multi-Vitamin] Tablet 1 tab PO DAILY ascorbic acid (vitamin C) [Vitamin C] 500 mg capsule, extended release 500 mg PO DAILY cholecalciferol (vitamin D3) 25 mcg (1,000 unit) capsule 4,000 unit PO BID Discontinued furosemide 40 mg tablet 40 mg PO DAILY aspirin [Adult Aspirin Regimen] 81 mg tablet,delayed release (DR/EC) 81 mg PO DAILY Patient Instructions: Furosemide (By mouth) (Lasix), Temazepam (By mouth), Potassium Chloride (By mouth), Amoxicillin (By mouth), Doxylamine (By mouth), Cellulitis (GEN), Zhou Catheter Placement and Care (DC), Urinary Leg Bag (GEN), How to Change a Catheter Drainage Bag (DC) Forms: Portal Instructions Follow Up Appointments: Follow up appt. with Dr. Ballard (urology) on @ 7:45am at [facility] [address] Please call and schedule follow up with Dr. Rodriguez within 1 week. Office : [phone] Follow up appt. with Dr. Rodriguez on Mar.21 @ 10am Office #: [phone] Discharge Date/Time: 03/11/23 16:50
[2023-03-11] MEDS: POTASSIUM CHLORIDE 40 MEQ in 0.9 % SODIUM CHLORIDE 250 ML 67.5 MEQ IV (09:18)
[2023-03-11] MEDS: CHOLECALCIFEROL (VITAMIN D3) 25 MCG/1,000 UNITS TABLET 100 MCG PO (09:19)
[2023-03-11] MEDS: ASCORBIC ACID 500 MG TABLET PO (09:19)
[2023-03-11] MEDS: MULTIVITAMIN TABLET 1 TAB PO (09:29)
[2023-03-11] MEDS: OXYBUTYNIN chloride 5 MG TABLET 10 MG PO (09:29)
[2023-03-11] MEDS: L. ACIDOPHILUS/L.BULGARICUS 1 PACKET GRAN.PACK PO (09:29)
[2023-03-11] MEDS: CLOPIDOGREL BISULFATE 75 MG TABLET PO (09:29)
[2023-03-11] MEDS: FISH OIL 1,000 MG CAPSULE 1000 MG PO (09:29)
[2023-03-11] MEDS: POTASSIUM CHLORIDE 10 MEQ ER TABLET 20 MEQ PO (09:29)
[2023-03-11] MEDS: ASPIRIN 81 MG TAB.CHEW PO (09:30)
[2023-03-11] MEDS: METOPROLOL TARTRATE 25 MG TABLET 12.5 MG PO (09:31)
[2023-03-11 12:16] VITALS: O2SAT 90
[2023-03-11] MEDS: INSULIN ASPART 300 UNIT/3 ML PEN SUBQ (13:34)
[2023-03-11 13:35] LABS: Glucometer 172 mg/dL (74-106)
--- NOTE | 2023-03-14 15:06 | CM.DCFOLLOWU ---
Person spoke with: patient How are you feeling? well How is your pain? some pain from [place] Did you understand your discharge instructions? yes Do you have any questions about your discharge instructions? no Were you given any prescriptions at discharge? yes Were you able to get your prescriptions filled? yes Do you understand how to take your medications as ordered? yes Do you have any questions about your follow up appointment and do you plan to keep your follow up appointment? no questions, follow up with urology on 03/16/23, follow up with PCP on 03/21/23 Is there anything else that you would like to discuss? no Questions/Comments/Concerns/Other:
== END 2023-03-11 16:50 | disposition home or self-care (01) | DRG 699 ==
PROVIDERS: Internal Medicine; Admitting Provider Family Medicine; PCP Family Medicine; Visit Provider Family Medicine
DX: N32.0 Bladder-neck obstruction (principal); L03.115 Cellulitis of right lower limb; L03.116 Cellulitis of left lower limb; E87.70 Fluid overload, unspecified; R31.9 Hematuria, unspecified; D50.9 Iron deficiency anemia, unspecified; R09.02 Hypoxemia; N40.1 Benign prostatic hyperplasia with lower urinary tract symptoms; R35.1 Nocturia; E87.6 Hypokalemia; I25.10 Atherosclerotic heart disease of native coronary artery without angina pectoris; Z79.02 Long term (current) use of antithrombotics/antiplatelets; Z95.5 Presence of coronary angioplasty implant and graft; Z82.49 Family history of ischemic heart disease and other diseases of the circulatory system; Z87.891 Personal history of nicotine dependence; Z79.82 Long term (current) use of aspirin; Z79.899 Other long term (current) drug therapy; Z95.1 Presence of aortocoronary bypass graft
CPT/HCPCS: 36415; 51702; 51798; 71045; 73562; 74178; 80048; 80053; 82948; 83605; 83735; 83880; 84436; 84443; 84481; 84484; 85014; 85018; 85025; 85610; 85730; 86140; 87040; 87070; 87205; 93970; 94640; 94761; 96365; 96366; 96367; 96368; 96375; 96376; G0378; J3370; J3480; Q9967

== ENCOUNTER 2024-05-14 14:26 | Outpatient (OUT) | payer MEDICARE, OTHER, SELFPAY ==
--- NOTE | 2024-05-14 | VEIN_ITS ---
Patient Name: ZABRINA BRAY MR#: [id number] : 1945 Exam Date: 05/14/2024 Ordering Doctor: DR Dexter Rodriguez . RADIOLOGY REPORT PROCEDURE: VC EXT VENOUS REFLUX IRMA LMTD COMPARISON: None. INDICATIONS: R60.0 Edema TECHNIQUE: Duplex imaging of the lower extremity to assess the deep and superficial venous system for the presence of deep or superficial venous incompetence and to document the location and severity of disease. The study includes evaluation of the great saphenous vein (GSV), anterior accessory saphenous vein (AASV) and small saphenous vein (SSV). Patient scanned in reverse Trendelenburg and standing. FINDINGS: RIGHT LOWER EXTREMITY: Saphenofemoral Junction Reflux: Yes 9.4mm 2.1 sec GSV: Diam (mm) Reflux/ Time (sec) Proximal Thigh N/A Mid Thigh N/A Distal Thigh N/A Prox Calf N/A Mid Calf N/A Saphenopopliteal Junction Reflux: 5.5mm Yes 0.5 SSV: Proximal Calf 5.5 Yes 1.1 Mid Calf 6.5 Yes 0.7 AASV: Proximal Thigh 4.2 Yes 0.7 Mid Thigh 2.3 Yes 3.4 Distal Thigh Thrombi: Areas of chemically induced thrombus in segments of varicose veins. Compressibility: Non compressible areas in varicose veins. Flow: Severe deep venous reflux. Preforator: Dist/med lower leg 3.2 mm with 0.9s reflux. Prox/med calf 6.4 mm, 2.5s reflux. Mid/lat calf 4.3 mm, 1.4s reflux. Prox/lateral thigh 5.4mm, 1.4s reflux Tech Note: Atherosclerosis noted throughout legs. Previously treated GSV. Incompetent varicose vein proximal posterior/lateral thigh off of boiler room operator measures 6.6 mm with 1.0s reflux. Varicose vein proximal lateral lower leg measures 4.0 mm with 0.8s reflux. Varicose vein proximal medial lower leg measures 5.8 mm with 4.1s reflux. Varicose vein distal medial thigh measures 4.0 mm with 3.0s reflux. LEFT LOWER EXTREMITY: Saphenofemoral Junction Reflux: Yes 10.5 mm 2.4 sec GSV: Diam (mm) Reflux/Time (sec) Proximal Thigh N/A Mid Thigh N/A Distal Thigh N/A Prox Calf 2.9 Yes 1.0 Mid Calf 3.9 Yes 1.0 Saphenopopliteal Junction Relux: 3.0 mm Yes 0.6 SSV: Proximal Calf 2.6 Yes 2.2 Mid Calf 4.9 Yes 1.3 AASV: Not present Proximal Thigh Mid Thigh Distal Thigh Thrombi: Areas of chemically induced thrombus in segments of varicose veins. Compressibility: Non compressible areas in varicose veins. Flow: Severe deep venous reflux. Radiologic Technology Instructor: Mid/med calf 3.9 mm, 1.5s reflux. Prox/med calf 6.1mm, 0.8s reflux. Prox/med thigh 4.0 mm, 1.2s reflux. Tech Note: Atherosclerosis noted throughout legs. Incompetent varicose vein mid medial thigh measures 5.6 mm with 2.5s reflux. Varicose vein medial knee measures 6.2 mm with 4.1s reflux. Varicose vein mid medial calf measures 4.9 mm with 3.7s reflux. Varicose vein distal medial lower leg 5.0 mm with 0.7s reflux. CONCLUSION: 1. 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 2. Significant reflux within the left small saphenous and and bilateral anterior accessory saphenous veins. however, these still fall below criteria for diameter of the vessel. 3. Multiple abnormally dilated and incompetent branch saphenous bilaterally. 4. Consultation for endovenous ablation of right small saphenous vein and bilateral incompetent branch saphenous varicosity should be considered. Dictated by: Marcos Sahu M.D. on 05/15/2024 at 12:43 Approved by: Marcos Sahu M.D. on 05/15/2024 at 12:48
--- NOTE | 2024-05-14 07:36 | VEINCLINIC_ITS ---
Vital Signs 05/14/24 14:59 Height 6 ft Weight 126.099 kg BMI 37.7 BP Location Left Brachial BP Position Sitting BP Cuff Size Adult BP Source Manual Cuff Respiration 18 Pulse 63 Pulse Source Monitor Pulse Oximetry (%) 95 Oxygen Delivery Method Room Air Varicose Veins Patient in this day for courtesy consult for bilateral painful varicose veins. Patient has had vein stripping in the past. He has seen us for EVLT/Varithena/ Sclerotherapy in the past. Continues to wear compression stockings to total about 18 years of salvatore them. He is not able to ride his bike as much as he used to due to pain. Patient c/o worsening leg pain to right leg over the past 3 months. Specifically to right later thigh and right mid lateral lower leg. Also has been having bilateral lower leg edema. Marcos Duenas MD personally performed the services described in this documentation, as scribed by Kelly Miller RN in my presence and it is both accurate and complete. Kelly Duenas RN, am scribing for, and in the presence of, Dr. Marcos Sahu and in the presence of the patient. aching, burning, cramping, dull, sharp and tender 8 3 months Worsened in recent months: Yes standing and sitting analgesics, elevating extremities and compression stockings Reports muscle spasms of leg, erythema, fatigue, heaviness, pruritus, limb pain, edema and leg edema History of lower extremity trauma: No Superficial thrombophlebitis: No Family history of varicose veins: yes Has patient had previous lower extremity venous surgery: Yes Patient has previously received the following treatment(s) for lower extremity varicose veins: Reports phlebectomy, sclerotherapy, foam therapy and laser therapy Does patient have a history of : not applicable Does patient intend to have future pregnancies: not applicable Has patient had lower extremity venous scan with relux testing: Yes Support hose used: Yes Problems walking or doing physical activity: Yes How does it affect you: unable to stand or sit longer than 30 minutes Do you walk much: No Do you stand much: Yes Review of Systems ROS Narrative Marcos Duenas MD personally performed the services described in this documentation, as scribed by Kelly Miller RN in my presence and it is both accurate and complete. Kelly Dueans RN, am scribing for, and in the presence of, Dr. Marcos Sahu and in the presence of the patient. Status of ROS 10 or more systems reviewed and unremark able except as noted in history and below Cardiovascular Reports: edema and swelling of feet/ankles Musculoskeletal Reports: extremity pain, extremity swelling, joint pain, joint swelling, muscle cramps and muscle weakness Integumentary/Breast Reports: rash, itching, redness and skin tenderness PFSH PFSH Medical History (Updated 05/14/24 @ 14:53 by Kelly Miller, ARMANDO) Pain due to varicose veins of both lower extremities ?I83.813 - Varicose veins of bilateral lower extremities with pain (ICD-10) Hypertension ?I10 - Essential (primary) hypertension (ICD-10) Postoperative abdominal hernia ?K43.2 - Incisional hernia without obstruction or gangrene (ICD-10) 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 - Atherosclerotic heart disease of [place] coronary artery without angina pectoris (ICD-10) Hernia ?K46.9 - Unspecified abdominal hernia without obstruction or gangrene (ICD- 10) Hyperlipidemia ?E78.5 - Hyperlipidemia, unspecified (ICD-10) Sleep apnea ?G47.30 - Sleep apnea, unspecified (ICD-10) Surgical History (Updated 05/14/24 @ 14:53 by Kelly Miller, ARMANDO) H/O vein stripping ?Z98.890 - Other specified postprocedural states (ICD-10) History of medial meniscus repair of left knee ?Z98.890 - Other specified postprocedural states (ICD-10) Hx of CABG ?Z95.1 - Presence of aortocoronary bypass graft (ICD-10) History of heart artery stent ?Z95.5 - Presence of coronary angioplasty implant and graft (ICD-10) Family History (Updated 05/14/24 @ 14:58 by Kelly Miller, ARMANDO) Mother Family history of CHF (congestive heart failure) Family history of myocardial infarction Family history of hypertension Varicose veins of bilateral lower extremities with pain Father Family history of COPD (chronic obstructive pulmonary disease) Social History (Updated 05/14/24 @ 14:54 by Kelly Miller, RN) Within the past year, how often did you have a drink containing alcohol: monthly or less Smoking status: Never smoker Non-prescribed substance use: denies use Meds Home Medications and Allergies Home Medications ?Medication ?Instructions ?Recorded ?Confirmed ?Type ascorbic acid (vitamin C) 500 mg 500 mg PO DAILY 03/07/23 05/14/24 History capsule,extended release (Vitamin C) atorvastatin 80 mg tablet 80 mg PO .at bedtime 03/07/23 05/14/24 History biotin 1 mg capsule 1 mg PO DAILY 03/07/23 05/14/24 History cholecalciferol (vitamin D3) 25 4,000 unit PO BID 03/07/23 05/14/24 History mcg (1,000 unit) capsule metoprolol tartrate 25 mg tablet 12.5 mg PO Q12H 03/07/23 05/14/24 History multivitamin (Daily Multi-Vitamin 1 tab PO DAILY 03/07/23 05/14/24 History tablet) omega 8-pov-kaa-fish oil 1,000 mg 2 cap PO DAILY 03/07/23 05/14/24 History (120 mg-180 mg) capsule (Fish Oil) furosemide 40 mg tablet (Lasix) 40 mg PO BID #60 tabs 03/11/23 05/14/24 Rx potassium chloride 20 mEq 20 meq PO BID #60 tabs 03/11/23 05/14/24 Rx tablet,extended release(part/cryst) (Klor-Con M) Lactobacillus acidophilus 10 10,000 mmu cells PO DAILY 05/14/24 05/14/24 History billion cell capsule (Probacap) aspirin 81 mg tablet,delayed 81 mg PO DAILY 05/14/24 05/14/24 History release (Adult Low Dose Aspirin) diclofenac sodium 75 mg mg PO 05/14/24 History tablet,delayed release finasteride 5 mg tablet (Proscar) 5 mg PO DAILY 05/14/24 05/14/24 History saw palmetto 450 mg capsule 450 mg PO BID 05/14/24 05/14/24 History tamsulosin 0.4 mg capsule (Flomax) 0.4 mg PO DAILY 05/14/24 05/14/24 History Allergies Allergy/AdvReac Type Severity Reaction Status Date / Time No Known Drug Allergies Allergy Verified 03/07/23 16:25 Exam Narrative Exam Narrative: IMarcos MD personally performed the services described in this documentation, as scribed by Kelly Miller RN in my presence and it is both accurate and complete. I, Kelly Miller RN, am scribing for, and in the presence of, Dr. Marcos Sahu and in the presence of the patient. Constitutional Documenting provider has reviewed patient's vital signs: yes Common normals: oriented x3 Nutritional appearance: overweight Lymph Lymphatic: no lymphedema noted Cardio Peripheral pulses: posterior tibial pulses present and dorsalis pedis pulses present Extremity General: edema and other findings Right lower extremity: lower leg Right lower leg: inspection and palpation Left lower extremity: lower leg Left lower leg: inspection and palpation Neuro Common normals: oriented x3 Assessment and Plan Assessment and Plan (1) Pain due to varicose veins of both lower extremities: Plan Explained vein anatomy and physiology to patient.? Explained the development of varicose veins to patient.? Explained varicose vein treatments to patient, including laser ablation, microfoam chemical ablation (Varithena), injection sclerotherapy and microphlebectomy.? Explained potential risks and benefits of varicose vein treatments. Patient verbalizes understanding and wants to pursue varicose vein treatment. Patient already has thigh high stockings at home. Ultrasound report will be sent to Dr. Rodriguez to determine if further treatment is warranted. IMarcos MD personally performed the services described in this documentation, as scribed by Kelly Miller RN in my presence and it is both accurate and complete. IKelly RN, am scribing for, and in the presence of, Dr. Marcos Sahu and in the presence of the patient.
--- NOTE | 2024-05-14 07:40 | W.VEIN ---
Discharge Plan Discharge Disposition: Home, Self-Care Follow Up Appointments: as needed Plan of Treatment: Ultrasound will be sent to referring physician to determine if treatment is needed. Patient Instructions: Endovenous Ablation (GEN) Print Language: [place]i Discharge Date/Time: 05/14/24 15:42
[2024-05-14 14:59] VITALS: PULSE 63; O2SAT 95; BMI 37.7
== END 2024-05-14 15:42 | disposition home or self-care (01) ==
PROVIDERS: PCP Family Medicine; Visit Provider Family Medicine
DX: R60.0 Localized edema (principal)
CPT/HCPCS: 93970

== ENCOUNTER 2024-05-22 14:35 | Outpatient (OUT) | payer MEDICARE, OTHER, SELFPAY ==
--- NOTE | 2024-05-22 12:49 | V.VEINS.HP ---
Vital Signs 05/22/24 14:39 BP 122/68 BP Location Left Brachial BP Position Sitting BP Cuff Size Adult BP Source Manual Cuff Respiration 18 Pulse 63 Pulse Source Monitor Pulse Oximetry (%) 94 L Oxygen Delivery Method Room Air Comment The patient's blood pressure is elevated. Varicose Veins Patient in this day for consult with physician for bilateral painful varicose veins. He already had a bilateral reflux lower extremity ultrasound on 05/14/24.. Dr. Rodriguez sent him back to discuss varicose vein treatment. Patient has had vein stripping in the past. He has seen us for EVLT/Varithena/ Sclerotherapy in the past. Continues to wear compression stockings to total about 18 years of salvatore them. He is not able to ride his bike as much as he used to due to pain. Patient c/o worsening leg pain to right leg over the past 3 months. Specifically to right lateral thigh and right mid lateral lower leg. Also has been having bilateral lower leg edema. No changes from previous visit. IFarooq MD personally performed the services described in this documentation, as scribed by Kelly Miller RN in my presence and it is both accurate and complete. IKelly RN, am scribing for, and in the presence of, Dr. Farooq Cheek and in the presence of the patient. aching, burning, cramping, dull, sharp and tender 8 3 months Worsened in recent months: Yes standing and sitting analgesics, elevating extremities and compression stockings Reports muscle spasms of leg, erythema, fatigue, heaviness, pruritus, limb pain, edema and leg edema History of lower extremity trauma: No Superficial thrombophlebitis: No Family history of varicose veins: yes Has patient had previous lower extremity venous surgery: Yes Patient has previously received the following treatment(s) for lower extremity varicose veins: Reports phlebectomy, sclerotherapy, foam therapy and laser therapy Does patient have a history of : not applicable Does patient intend to have future pregnancies: not applicable Has patient had lower extremity venous scan with relux testing: Yes Support hose used: Yes Problems walking or doing physical activity: Yes How does it affect you: unable to stand or sit longer than 30 minutes Do you walk much: No Do you stand much: Yes Review of Systems ROS Narrative Farooq Duenas MD personally performed the services described in this documentation, as scribed by Kelly Miller RN in my presence and it is both accurate and complete. I, Kelly Miller RN, am scribing for, and in the presence of, Dr. Farooq hCeek and in the presence of the patient. Status of ROS 10 or more systems reviewed and unremarkable except as noted in history and below Cardiovascular Reports: edema and swelling of feet/ankles Musculoskeletal Reports: extremity pain, extremity swelling, joint pain, joint swelling, muscle cramps and muscle weakness Integumentary/Breast Reports: rash, itching, redness and skin tenderness PFSH PFSH Medical History (Updated 05/14/24 @ 14:53 by Kelly Miller RN) Pain due to varicose veins of both lower extremities ?I83.813 - Varicose veins of bilateral lower extremities with pain (ICD-10) Hypertension ?I10 - Essential (primary) hypertension (ICD-10) Postoperative abdominal hernia ?K43.2 - Incisional hernia without obstruction or gangrene (ICD-10) 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 - Atherosclerotic heart disease of [place] coronary artery without angina pectoris (ICD-10) Hernia ?K46.9 - Unspecified abdominal hernia without obstruction or gangrene (ICD-10) Hyperlipidemia ?E78.5 - Hyperlipidemia, unspecified (ICD-10) Sleep apnea ?G47.30 - Sleep apnea, unspecified (ICD-10) Surgical History (Updated 05/14/24 @ 14:53 by Kelly Miller RN) H/O vein stripping ?Z98.890 - Other specified postprocedural states (ICD-10) History of medial meniscus repair of left knee ?Z98.890 - Other specified postprocedural states (ICD-10) Hx of CABG ?Z95.1 - Presence of aortocoronary bypass graft (ICD-10) History of heart artery stent ?Z95.5 - Presence of coronary angioplasty implant and graft (ICD-10) Family History (Updated 05/14/24 @ 14:58 by Kelly Miller RN) Mother Family history of CHF (congestive heart failure) Family history of myocardial infarction Family history of hypertension Varicose veins of bilateral lower extremities with pain Father Family history of COPD (chronic obstructive pulmonary disease) Social History (Updated 05/14/24 @ 14:54 by Kelly Miller RN) Within the past year, how often did you have a drink containing alcohol: monthly or less Smoking status: Never smoker Non-prescribed substance use: denies use Meds Home Medications and Allergies Home Medications ?Medication ?Instructions ?Recorded ?Confirmed ?Type ascorbic acid (vitamin C) 500 mg 500 mg PO DAILY 03/07/23 05/14/24 History capsule,extended release (Vitamin C) atorvastatin 80 mg tablet 80 mg PO .at bedtime 03/07/23 05/14/24 History biotin 1 mg capsule 1 mg PO DAILY 03/07/23 05/14/24 History cholecalciferol (vitamin D3) 25 4,000 unit PO BID 03/07/23 05/14/24 History mcg (1,000 unit) capsule metoprolol tartrate 25 mg tablet 12.5 mg PO Q12H 03/07/23 05/14/24 History multivitamin (Daily Multi-Vitamin 1 tab PO DAILY 03/07/23 05/14/24 History tablet) omega 7-bjv-ywn-fish oil 1,000 mg 2 cap PO DAILY 03/07/23 05/14/24 History (120 mg-180 mg) capsule (Fish Oil) furosemide 40 mg tablet (Lasix) 40 mg PO BID #60 tabs 03/11/23 05/14/24 Rx potassium chloride 20 mEq 20 meq PO BID #60 tabs 03/11/23 05/14/24 Rx tablet,extended release(part/cryst) (Klor-Con M) Lactobacillus acidophilus 10 10,000 mmu cells PO DAILY 05/14/24 05/14/24 History billion cell capsule (Probacap) aspirin 81 mg tablet,delayed 81 mg PO DAILY 05/14/24 05/14/24 History release (Adult Low Dose Aspirin) diclofenac sodium 75 mg mg PO 05/14/24 History tablet,delayed release finasteride 5 mg tablet (Proscar) 5 mg PO DAILY 05/14/24 05/14/24 History saw palmetto 450 mg capsule 450 mg PO BID 05/14/24 05/14/24 History tamsulosin 0.4 mg capsule (Flomax) 0.4 mg PO DAILY 05/14/24 05/14/24 History Allergies Allergy/AdvReac Type Severity Reaction Status Date / Time No Known Drug Allergies Allergy Verified 03/07/23 16:25 Exam Narrative Exam Narrative: I, Farooq Cheek MD personally performed the services described in this documentation, as scribed by Kelly Miller RN in my presence and it is both accurate and complete. I, Kelly Miller RN, am scribing for, and in the presence of, Dr. Farooq Cheek and in the presence of the patient. Constitutional Documenting provider has reviewed patient's vital signs: yes Common normals: oriented x3 Nutritional appearance: overweight Lymph Lymphatic: no lymphedema noted Cardio Peripheral pulses: posterior tibial pulses present and dorsalis pedis pulses present Extremity General: edema and other findings Right lower extremity: lower leg Right lower leg: inspection and palpation Left lower extremity: lower leg Left lower leg: inspection and palpation Neuro Common normals: oriented x3 Assessment and Plan Assessment and Plan (1) Pain due to varicose veins of both lower extremities: Plan Explained vein anatomy and physiology to patient. Explained the development of varicose veins to patient.? Explained varicose vein treatments to patient, including laser ablation, microfoam chemical ablation (Varithena), injection sclerotherapy and microphlebectomy.? Explained potential risks and benefits of varicose vein treatments.? Patient verbalizes understanding and wants to pursue varicose vein treatment.? Dr. Cheek examines patient and reviews results of bilateral leg reflux u/s.? Patient and Dr. Cheek creates a plan of care.? Patient also agrees to purchase bilateral thigh high compression stockings and wear them as educated.? Patient also educated on exercise and rest elevation of bilateral legs. Plan is to treat BLE with Varithena starting with right leg. Scheduled for 05/31/24. Farooq Duenas MD personally performed the services described in this documentation, as scribed by Kelly Miller RN in my presence and it is both accurate and complete. I, Kelly Miller RN, am scribing for, and in the presence of, Dr. Farooq Cheek and in the presence of the patient.
--- NOTE | 2024-05-22 12:57 | W.VEIN ---
Discharge Plan Discharge Disposition: Home, Self-Care Outpatient Diagnostics: [facility] INJ Foam Sclerosant WUS BORDER PATROL AGENT (Routine) Timeframe: 2 Weeks Facility: [facility] - Location: [facility] Ordered By: Faoroq Cheek Follow Up Appointments: 05/31/24 Plan of Treatment: schedule varithena right leg 05/31/24 Patient Instructions: Polidocanol (By injection) (Idalia Olguin) Print Language: Persian Discharge Date/Time: 05/22/24 15:13
--- NOTE | 2024-05-22 14:36 | VEIN_ITS ---
Patient Name: ZABRINA BRAY MR#: [id number] : 1945 Exam Date: 05/22/2024 Ordering Doctor: DR FAROOQ LYNN M.D. RADIOLOGY REPORT PROCEDURE: [facility] - OFFICE VISIT INITIAL COMPARISON: None. PROGRESS NOTES: 78-year-old previous patient who returns with interval development of bilateral moderately painful varicose veins most significant along the right posterior thigh. This affects the patient's activities of daily living as he is unable to sit or drive the car for extended periods of time without significant pain. Leg elevation and compression stockings result in only minimal improvement of his symptoms. The patient denies any signs and symptoms to suggest arterial ischemia. The patient describes a family history congestive heart failure myocardial infarction hypertension of varicose veins. Patient drinks alcohol approximately 1 time per month. The patient has never smoked. No illicit drug use. Surgical history for knee meniscal repair, coronary artery bypass surgery and coronary stenting. No history of deep venous thrombus or pulmonary embolus. See separate history and physical for medication list. Previous extensive treatment for varicose or spider veins. The patient has worn compression stockings for many years. After review of nurse notes, history and physical exam I discussed at length the pathophysiology of venous hypertension and possible treatments, therapies and strategies available. We discussed at length the importance of elevating the lower extremities above the level of the heart, increased physical activity and compression stocking use. We discussed micro foam chemical ablation. Ultrasound venous reflux study performed the May 15, 2024 was discussed at length with the patient. The report demonstrates bilateral small saphenous and anterior accessory saphenous vein venous insufficiency without significant dilatation. Bilateral incompetent branch saphenous varicosities. PHYSICAL EXAM: The right leg demonstrates scattered varicose reticular and spider veins most significant along the posterior right thigh. Moderate hemosiderin staining appears stable from the prior exam. Mild subcutaneous edema. No active ulceration The left leg demonstrates scattered varicose, reticular and spider veins. Moderate hemosiderin staining. Mild subcutaneous edema. No active ulceration Both thighs, legs and feet were symmetrically warm to the touch. Good posterior tibial and dorsalis pedis pulses were present bilaterally. VEIN/[facility] Facility EST Comprehensive IMPRESSION: 1. Mild bilateral small saphenous and anterior accessory saphenous vein venous insufficiency 2. Moderate bilateral in com lower extremity varicose veins, right greater than left 3. Moderate bilateral lower extremity subcutaneous edema 4. No definite flow significant arterial disease 5. CEAP: C4a, Ep, As, Pr PLAN: 1. Micro foam chemical ablation of the right leg followed by the left leg 2. Continued surveillance of the bilateral small and anterior accessory saphenous vein 3. Continued use of compression stockings Nurse notes, history and physical were reviewed and confirmed, see attached forms. The nurse was present throughout the physical exam and consultation Dictated by: Farooq Lynn MD on 05/22/2024 at 15:06 Approved by: Farooq Lynn MD on 05/22/2024 at 15:11
[2024-05-22 14:39] VITALS: BP 122/68; PULSE 63; O2SAT 94
== END 2024-05-22 15:13 | disposition home or self-care (01) ==
LOC: VC 14:35
PROVIDERS: PCP Family Medicine; Visit Provider Radiology Diagnostic Radiology
DX: I83.813 Varicose veins of bilateral lower extremities with pain (principal)
CPT/HCPCS: G0463

== ENCOUNTER 2024-05-31 13:54 | Outpatient (OUT) | payer MEDICARE, OTHER, SELFPAY ==
--- NOTE | 2024-05-29 14:23 | VEINCLINIC_ITS ---
Vital Signs 05/31/24 14:08 BP 128/68 BP Location Left Brachial BP Position Sitting BP Cuff Size Adult BP Source Manual Cuff Respiration 18 Pulse 65 Pulse Source Monitor Pulse Oximetry (%) 95 Oxygen Delivery Method Room Air Comment The patient's blood pressure is elevated. Varicose Veins Patient in this day for Varithena/microfoam chemical ablation right leg. Farooq Duenas MD personally performed the services described in this documentation, as scribed by Kelly Miller RN in my presence and it is both accurate and complete. Kelly Duenas RN, am scribing for, and in the presence of, Dr. Farooq Cheek and in the presence of the patient. aching, burning, cramping, dull, sharp and tender 8 3 months Worsened in recent months: Yes standing and sitting analgesics, elevating extremities and compression stockings Reports muscle spasms of leg, erythema, fatigue, heaviness, pruritus, limb pain, edema and leg edema History of lower extremity trauma: No Superficial thrombophlebitis: No Family history of varicose veins: yes Has patient had previous lower extremity venous surgery: Yes Patient has previously received the following treatment(s) for lower extremity varicose veins: Reports phlebectomy, sclerotherapy, foam therapy and laser therapy Does patient have a history of : not applicable Does patient intend to have future pregnancies: not applicable Has patient had lower extremity venous scan with relux testing: Yes Support hose used: Yes Problems walking or doing physical activity: Yes How does it affect you: unable to stand or sit longer than 30 minutes Do you walk much: No Do you stand much: Yes Review of Systems ROS Narrative Farooq Duenas MD personally performed the services described in this documentation, as scribed by Kelly Miller RN in my presence and it is both accurate and complete. Kelly Duenas RN, am scribing for, and in the presence of, Dr. Farooq Cheek and in the presence of the patient. Status of ROS 10 or more systems reviewed and unremark able except as noted in history and below Cardiovascular Reports: edema and swelling of feet/ankles Musculoskeletal Reports: extremity pain, extremity swelling, joint pain, joint swelling, muscle cramps and muscle weakness Integumentary/Breast Reports: rash, itching, redness and skin tenderness PFSH [facility] Medical History (Updated 05/29/24 @ 14:45 by Kelly Miller, RN) Phlebitis and thrombophlebitis of superficial vessels of right lower extremity ?I80.01 - Phlebitis and thrombophlebitis of superficial vessels of right lower extremity (ICD-10) Pain due to varicose veins of both lower extremities ?I83.813 - Varicose veins of bilateral lower extremities with pain (ICD-10) Hypertension ?I10 - Essential (primary) hypertension (ICD-10) Postoperative abdominal hernia ?K43.2 - Incisional hernia without obstruction or gangrene (ICD-10) 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 - Atherosclerotic heart disease of [place] coronary artery without angina pectoris (ICD-10) Hernia ?K46.9 - Unspecified abdominal hernia without obstruction or gangrene (ICD- 10) Hyperlipidemia ?E78.5 - Hyperlipidemia, unspecified (ICD-10) Sleep apnea ?G47.30 - Sleep apnea, unspecified (ICD-10) Surgical History (Updated 05/31/24 @ 16:09 by Kelly Miller RN) S/P sclerotherapy of varicose veins ?Z98.890 - Other specified postprocedural states (ICD-10) ?Z86.79 - Personal history of other diseases of the circulatory system (ICD- 10) H/O vein stripping ?Z98.890 - Other specified postprocedural states (ICD-10) History of medial meniscus repair of left knee ?Z98.890 - Other specified postprocedural states (ICD-10) Hx of CABG ?Z95.1 - Presence of aortocoronary bypass graft (ICD-10) History of heart artery stent ?Z95.5 - Presence of coronary angioplasty implant and graft (ICD-10) Family History (Updated 05/14/24 @ 14:58 by Kelly Miller, RN) Mother Family history of CHF (congestive heart failure) Family history of myocardial infarction Family history of hypertension Varicose veins of bilateral lower extremities with pain Father Family history of COPD (chronic obstructive pulmonary disease) Social History (Updated 05/14/24 @ 14:54 by Kelly Miller, ARMANDO) Within the past year, how often did you have a drink containing alcohol: monthly or less Smoking status: Never smoker Non-prescribed substance use: denies use Meds Home Medications and Allergies Home Medications ?Medication ?Instructions ?Recorded ?Confirmed ?Type ascorbic acid (vitamin C) 500 mg 500 mg PO DAILY 03/07/23 05/14/24 History capsule,extended release (Vitamin C) atorvastatin 80 mg tablet 80 mg PO .at bedtime 03/07/23 05/14/24 History biotin 1 mg capsule 1 mg PO DAILY 03/07/23 05/14/24 History cholecalciferol (vitamin D3) 25 4,000 unit PO BID 03/07/23 05/14/24 History mcg (1,000 unit) capsule metoprolol tartrate 25 mg tablet 12.5 mg PO Q12H 03/07/23 05/14/24 History multivitamin (Daily Multi-Vitamin 1 tab PO DAILY 03/07/23 05/14/24 History tablet) omega 3-uoq-nnd-fish oil 1,000 mg 2 cap PO DAILY 03/07/23 05/14/24 History (120 mg-180 mg) capsule (Fish Oil) furosemide 40 mg tablet (Lasix) 40 mg PO BID #60 tabs 03/11/23 05/14/24 Rx potassium chloride 20 mEq 20 meq PO BID #60 tabs 03/11/23 05/14/24 Rx tablet,extended release(part/cryst) (Klor-Con M) Lactobacillus acidophilus 10 10,000 mmu cells PO DAILY 05/14/24 05/14/24 History billion cell capsule (Probacap) aspirin 81 mg tablet,delayed 81 mg PO DAILY 05/14/24 05/14/24 History release (Adult Low Dose Aspirin) diclofenac sodium 75 mg mg PO 05/14/24 History tablet,delayed release finasteride 5 mg tablet (Proscar) 5 mg PO DAILY 05/14/24 05/14/24 History saw palmetto 450 mg capsule 450 mg PO BID 05/14/24 05/14/24 History tamsulosin 0.4 mg capsule (Flomax) 0.4 mg PO DAILY 05/14/24 05/14/24 History Allergies Allergy/AdvReac Type Severity Reaction Status Date / Time No Known Drug Allergies Allergy Verified 03/07/23 16:25 Exam Narrative Exam Narrative: IFarooq MD personally performed the services described in this documentation, as scribed by Kelly Miller RN in my presence and it is both accurate and complete. IKelly RN, am scribing for, and in the presence of, Dr. Farooq Cheek and in the presence of the patient. Constitutional Documenting provider has reviewed patient's vital signs: yes Common normals: oriented x3 Nutritional appearance: overweight Lymph Lymphatic: no lymphedema noted Cardio Peripheral pulses: posterior tibial pulses present and dorsalis pedis pulses present Extremity General: edema and other findings Right lower extremity: lower leg Right lower leg: inspection and palpation Left lower extremity: lower leg Left lower leg: inspection and palpation Neuro Common normals: oriented x3 Assessment and Plan Assessment and Plan (1) Pain due to varicose veins of both lower extremities: Plan The patient tolerated the procedure well without complication.? The patient verbalizes understanding and states they will comply.? Patient was given post- procedure instructions. Patient was discharged in good condition.? Scheduled to undergo follow-up evaluation on 06/06/24. Farooq Duenas MD personally performed the services described in this documentation, as scribed by Kelly Miller RN in my presence and it is both accurate and complete. Kelly Duenas RN, am scribing for, and in the presence of, Dr. Farooq Cheek and in the presence of the patient. Procedures Procedure Instructions Procedures leg microfoam chemical ablation/Varithena: Risks and benefits of the procedure were discussed at length and informed written consent was obtained.? Time-out procedure was performed and the correct patient and procedure were confirmed.? Staff present during time-out: Kelly Miller RN and Farooq Cheek MD.? Patient prepped and procedure performed in usual sterile fashion.? Patient was placed in Trendelenburg prior to Polidocano l/Varithena injections. Sclerosing Agent:?? 4cc 1% Polidocanol/Varithena Site Injected: right leg Number of Injections:? 6cc into 5mm vein right proximal lateral lower leg 7cc into 6mm vein right mid lateral thigh 2cc into 4mm vein right posterior lateral mid thigh The patient tolerated the procedure well without complication.? Hemostasis was obtained and thigh-high compression stocking was applied with foam pads.? Instructed patient to wear stocking for at least 96 hours and sleep with it and only remove for showering.? The patient was instructed to? wear stocking for 2 weeks.? Patient verbalizes understanding and states they will comply.? Patient was given post-procedure instructions. Patient was discharged in good condition.? Scheduled to undergo limited venous ultrasound and? exam on 06/06/24. Farooq Duenas MD personally performed the services described in this documentation, as scribed by Kelly Miller RN in my presence and it is both accurate and complete. I, Kelly Miller RN, am scribing for, and in the presence of, Dr. Farooq Cheek and in the presence of the patient.
--- NOTE | 2024-05-29 14:42 | W.VEIN ---
Discharge Plan Discharge Disposition: Home, Self-Care Outpatient Diagnostics: [facility] Facility EST LMTD (Routine) Timeframe: 2 Weeks Facility: [facility] - Location: [facility] Center Ordered By: Farooq Cheek VC EXT Venous RT LMTD (Routine) Timeframe: 2 Weeks Facility: [facility] - Location: Vein Center Ordered By: Farooq Cheek Follow Up Appointments: 06/06/24 Plan of Treatment: u/s follow up following varithena right leg 05/31/24 Patient Instructions: Polidocanol (By injection) (Adenike Olguintheky) Print Language: Latvian Discharge Date/Time: 05/31/24 14:50
--- NOTE | 2024-05-30 16:02 | V.VEINS.HP ---
Varicose Veins Patient in this day for microfoam chemical ablation right leg Farooq Duenas MD personally performed the services described in this documentation, as scribed by Ranjan Ceballos RN in my presence and it is both accurate and complete. Ranjan Duenas RN, am scribing for, and in the presence of, Dr. Farooq Cheek and in the presence of the patient. aching, burning, cramping, dull, sharp and tender 8 3 months Worsened in recent months: Yes standing and sitting analgesics, elevating extremities and compression stockings Reports muscle spasms of leg, erythema, fatigue, heaviness, pruritus, limb pain, edema and leg edema History of lower extremity trauma: No Superficial thrombophlebitis: No Family history of varicose veins: yes Has patient had previous lower extremity venous surgery: Yes Patient has previously received the following treatment(s) for lower extremity varicose veins: Reports phlebectomy, sclerotherapy, foam therapy and laser therapy Does patient have a history of : not applicable Does patient intend to have future pregnancies: not applicable Has patient had lower extremity venous scan with relux testing: Yes Support hose used: Yes Problems walking or doing physical activity: Yes How does it affect you: unable to stand or sit longer than 30 minutes Do you walk much: No Do you stand much: Yes Review of Systems ROS Narrative Farooq Duenas MD personally performed the services described in this documentation, as scribed by Ranjan Ceballos RN in my presence and it is both accurate and complete. Ranjan Duenas RN, am scribing for, and in the presence of, Dr. Farooq Cheek and in the presence of the patient. Status of ROS 10 or more systems reviewed and unremarkable except as noted in history and below Cardiovascular Reports: edema and swelling of feet/ankles Musculoskeletal Reports: extremity pain, extremity swelling, joint pain, joint swelling, muscle cramps and muscle weakness Integumentary/Breast Reports: rash, itching, redness and skin tenderness [facility] Medical History (Updated 05/29/24 @ 14:45 by Kelly Miller RN) Phlebitis and thrombophlebitis of superficial vessels of right lower extremity ?I80.01 - Phlebitis and thrombophlebitis of superficial vessels of right lower extremity (ICD-10) Pain due to varicose veins of both lower extremities ?I83.813 - Varicose veins of bilateral lower extremities with pain (ICD-10) Hypertension ?I10 - Essential (primary) hypertension (ICD-10) Postoperative abdominal hernia ?K43.2 - Incisional hernia without obstruction or gangrene (ICD-10) 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 - Atherosclerotic heart disease of [place] coronary artery without angina pectoris (ICD-10) Hernia ?K46.9 - Unspecified abdominal hernia without obstruction or gangrene (ICD-10) Hyperlipidemia ?E78.5 - Hyperlipidemia, unspecified (ICD-10) Sleep apnea ?G47.30 - Sleep apnea, unspecified (ICD-10) Surgical History (Updated 05/14/24 @ 14:53 by Kelly Miller, RN) H/O vein stripping ?Z98.890 - Other specified postprocedural states (ICD-10) History of medial meniscus repair of left knee ?Z98.890 - Other specified postprocedural states (ICD-10) Hx of CABG ?Z95.1 - Presence of aortocoronary bypass graft (ICD-10) History of heart artery stent ?Z95.5 - Presence of coronary angioplasty implant and graft (ICD-10) Family History (Updated 05/14/24 @ 14:58 by Kelly Miller, RN) Mother Family history of CHF (congestive heart failure) Family history of myocardial infarction Family history of hypertension Varicose veins of bilateral lower extremities with pain Father Family history of COPD (chronic obstructive pulmonary disease) Social History (Updated 05/14/24 @ 14:54 by Kelly Miller, RN) Within the past year, how often did you have a drink containing alcohol: monthly or less Smoking status: Never smoker Non-prescribed substance use: denies use Meds Home Medications and Allergies Home Medications ?Medication ?Instructions ?Recorded ?Confirmed ?Type ascorbic acid (vitamin C) 500 mg 500 mg PO DAILY 03/07/23 05/14/24 History capsule,extended release (Vitamin C) atorvastatin 80 mg tablet 80 mg PO .at bedtime 03/07/23 05/14/24 History biotin 1 mg capsule 1 mg PO DAILY 03/07/23 05/14/24 History cholecalciferol (vitamin D3) 25 4,000 unit PO BID 03/07/23 05/14/24 History mcg (1,000 unit) capsule metoprolol tartrate 25 mg tablet 12.5 mg PO Q12H 03/07/23 05/14/24 History multivitamin (Daily Multi-Vitamin 1 tab PO DAILY 03/07/23 05/14/24 History tablet) omega 3-bdi-phl-fish oil 1,000 mg 2 cap PO DAILY 03/07/23 05/14/24 History (120 mg-180 mg) capsule (Fish Oil) furosemide 40 mg tablet (Lasix) 40 mg PO BID #60 tabs 03/11/23 05/14/24 Rx potassium chloride 20 mEq 20 meq PO BID #60 tabs 03/11/23 05/14/24 Rx tablet,extended release(part/cryst) (Klor-Con M) Lactobacillus acidophilus 10 10,000 mmu cells PO DAILY 05/14/24 05/14/24 History billion cell capsule (Probacap) aspirin 81 mg tablet,delayed 81 mg PO DAILY 05/14/24 05/14/24 History release (Adult Low Dose Aspirin) diclofenac sodium 75 mg mg PO 05/14/24 History tablet,delayed release finasteride 5 mg tablet (Proscar) 5 mg PO DAILY 05/14/24 05/14/24 History saw palmetto 450 mg capsule 450 mg PO BID 05/14/24 05/14/24 History tamsulosin 0.4 mg capsule (Flomax) 0.4 mg PO DAILY 05/14/24 05/14/24 History Allergies Allergy/AdvReac Type Severity Reaction Status Date / Time No Known Drug Allergies Allergy Verified 03/07/23 16:25 Exam Narrative Exam Narrative: Farooq Duenas MD personally performed the services described in this documentation, as scribed by Ranjan Ceballos RN in my presence and it is both accurate and complete. Ranjan Duenas RN, am scribing for, and in the presence of, Dr. Farooq Cheek and in the presence of the patient. Constitutional Documenting provider has reviewed patient's vital signs: yes Common normals: oriented x3 Nutritional appearance: overweight Lymph Lymphatic: no lymphedema noted Cardio Peripheral pulses: posterior tibial pulses present and dorsalis pedis pulses present Extremity General: edema and other findings Right lower extremity: lower leg Right lower leg: inspection and palpation Left lower extremity: lower leg Left lower leg: inspection and palpation Neuro Common normals: oriented x3 Assessment and Plan Assessment and Plan (1) Pain due to varicose veins of both lower extremities: Plan f/u examination with physician along with right leg limited u/s IFarooq MD personally performed the services described in this documentation, as scribed by Ranjan Ceballos RN in my presence and it is both accurate and complete. I, Ranjan Ceballos RN, am scribing for, and in the presence of, Dr. Farooq Cheek and in the presence of the patient. Procedures Procedure Instructions Procedures leg microfoam chemical ablation/Varithena: Risks and benefits of the procedure were discussed at length and informed written consent was obtained.? Time-out procedure was performed and the correct patient and procedure were confirmed.? Staff present during time-out: Ranjan Ceballos RN and Farooq Cheek MD.? Patient prepped and procedure performed in usual sterile fashion.? Patient was placed in Trendelenburg prior to Polidocanol/Varithena injections. Sclerosing Agent:?? cc 1% Polidocanol/Varithena Site Injected: Right leg: Number of Injections:? The patient tolerated the procedure well without complication.? Hemostasis was obtained and thigh-high compression stocking was applied with foam pads.? Instructed patient to wear stocking for at least 96 hours and sleep with it and only remove for showering.? The patient was instructed to? wear stocking for 2 weeks.? Patient verbalizes understanding and states they will comply.? Patient was given post-procedure instructions. Patient was discharged in good condition.? Scheduled to undergo limited venous ultrasound and? exam on IFarooq MD personally performed the services described in this documentation, as scribed by Ranjan Ceballos RN in my presence and it is both accurate and complete. I, Ranjan Ceballos RN, am scribing for, and in the presence of, Dr. Farooq Cheek and in the presence of the patient.
--- NOTE | 2024-05-30 16:06 | W.VEIN ---
Discharge Plan Discharge Disposition: Home, Self-Care Outpatient Diagnostics: VC Facility EST LMTD (Routine) Timeframe: 2 Weeks Facility: [facility] - Location: [facility]in Center Ordered By: Farooq Cheek VC EXT Venous RT LMTD (Routine) Timeframe: 2 Weeks Facility: [facility] - Location: Vein Center Ordered By: Farooq Cheek Plan of Treatment: u/s follow up following varithena right leg 05/31/24 Patient Instructions: Polidocanol (By injection) (AscleraAdenikethena) Print Language: [place] Citizen
--- NOTE | 2024-05-31 13:57 | VEIN_ITS ---
[address] [address] Patient Name: ZABRINA BRAY MRN: [id number] date: 1945 Sex: M Assigned Patient Location: Current Patient Location: Accession/Order Number: [id number] Exam Date: 05/31/2024 14:03 Report Date: 05/31/2024 15:26 At the request of: MONI LYNN Procedure: VC INJ Foam Sclerosant WUS [employer]OTO PRINT SPECIALIST PROCEDURE: VC INJ Foam Sclerosant WUS PHOTO PRINT SPECIALIST COMPARISON: None. HISTORY: I83.813 - Varicose veins of bilateral lower extremities w... Pre-operative Diagnosis: CEAP class C4a venous insufficiency with pain, tenderness, edema and incompetent right saphenous and varicose vein(s), chronic venous insufficiency right leg secondary to venous incompetence Post-operative Diagnosis: CEAP class C4a venous insufficiency with pain, tenderness, edema and incompetent right saphenous and varicose vein(s), chronic venous insufficiency right leg secondary to venous incompetence Procedure Performed: 1. Ultrasound-guided microfoam chemical ablation with Varithenaregistered 2. Intraoperative ultrasound guidance Anesthesia: None Indications for Procedure: 78-year-old male who presents with a long history of lower extremity pain swelling varicose veins. The patient failed conservative medical therapy including medical compression stockings, exercise and analgesics. Prior procedures include endovenous laser ablation and Microfoam chemical ablation. Multiple incompetent varicosities of the right leg. Duplex scan showed reflux and enlarged diameters up to 6 mm. The patient underwent informed consent including management options where the complications of infection, bleeding, pain, and skin injury were discussed. Particular attention was spent discussing thrombus extension and deep vein thrombosis as well as the possibility of pulmonary embolus and treatment with oral or injectable blood thinners. Procedure: The patient walked to the procedure room. All applicable staff donned appropriate apparel. A procedure timeout was performed to confirm correct patient, correct extremity, correct procedure, and correct room set-up including presence of all applicable supplies, devices, and drugs. A duplex ultrasound, performed by myself confirmed the location and incompetence of branch saphenous varicosities and their course was marked on the skin together with the dilated tributaries. The extent of treatment of the vein and the associated varicosities was determined through ultrasound mapping. The skin was prepped and then punctured with a butterfly needle and advanced under ultrasound guidance. The Varithenaregistered canister was activated and the canister was primed and purged as required in the instructions for use. Varithenaregistered was drawn into a sterile syringe. The following injections were made: 6 cc injected into 5 mm varicose vein right proximal lateral lower leg 7 cc injected into a 6 mm varicose vein right mid lateral thigh 2 cc injected into a 4 mm varicose vein right posterior lateral medial thigh Varithenaregistered was slowly administered at 0.5-1.0 cc/second with close observation by ultrasound of its course in the vessels. Total volume utilized was: 15 cc. Following administration of Varithenaregistered the leg was elevated and the patient was asked to repeatedly dorsiflex the ankle to limit flow of Varithenaregistered into perforating veins. Once appropriate spasm had been confirmed in the treated veins, the vascular catheter was removed from the leg and light pressure was applied over the puncture site for hemostasis. The common femoral and deep superficial veins were then evaluated for flow and compressibility prior to dressing placement. The lower extremity was kept elevated at 45 degrees above the horizontal and cording material was applied over the saphenous segments and tributaries to allow for eccentric compression over the target vessels including the targeted saphenous vein(s). A multilayer dressing was applied consisting of foam pads, coban and thigh-high 20-30 mm Hg compression elastic support hose were placed on the patient. The leg was lowered only after compression had been applied and the patient was immediately ambulatory. The patient ambulated 10 minutes under supervision and was without apparent concerns at time of release. Post-care instructions include advising patient to keep post-treatment bandages in place and dry for 48 hours, avoid extended periods of inactivity, avoid heavy exercise for one week, wear compression stockings on the treated leg continuously for two weeks, to walk daily for 10 minutes over the next month. The patient was instructed to take an anti-inflammatory medicine as needed and to follow up for color duplex scan of the Saphenous veins, the treated branch saphenous varicosities, the adjacent deep veins, and additional treatment within 7 days. PERSONNEL: Kelly Miller RN Electronically authenticated by: MONI LYNN Date: 05/31/2024 15:26
[2024-05-31 14:08] VITALS: BP 128/68; PULSE 65; O2SAT 95
== END 2024-05-31 14:50 | disposition home or self-care (01) ==
LOC: VC 13:55
PROVIDERS: PCP Family Medicine; Visit Provider Radiology Diagnostic Radiology
DX: I83.813 Varicose veins of bilateral lower extremities with pain (principal)
CPT/HCPCS: 36466

== ENCOUNTER 2024-06-06 14:17 | Outpatient (OUT) | payer MEDICARE, OTHER, SELFPAY ==
[2024-06-06 08:13] VITALS: BMI 37.7
--- NOTE | 2024-06-06 08:13 | VEINCLINIC_ITS ---
Vital Signs 06/06/24 08:13 Height 6 ft Weight 126 kg BMI 37.7 Varicose Veins Patient in today for follow up ultrasound of right lower extremity following treatment of Varithena/microfoam completed on 05/31/24. Marcos Duenas MD personally performed the services described in this documentation, as scribed by Tami Carbajal RDMS in my presence and it is both accurate and complete. Tami Duenas RDMS am scribing for, and in the presence of, Dr. Marcos Sahu and in the presence of the patient. aching, burning, cramping, dull, sharp and tender 8 3 months Worsened in recent months: Yes standing and sitting analgesics, elevating extremities and compression stockings Reports muscle spasms of leg, erythema, fatigue, heaviness, pruritus, limb pain, edema and leg edema History of lower extremity trauma: No Superficial thrombophlebitis: No Family history of varicose veins: yes Has patient had previous lower extremity venous surgery: Yes Patient has previously received the following treatment(s) for lower extremity varicose veins: Reports phlebectomy, sclerotherapy, foam therapy and laser therapy Does patient have a history of : not applicable Does patient intend to have future pregnancies: not applicable Has patient had lower extremity venous scan with relux testing: Yes Support hose used: Yes Problems walking or doing physical activity: Yes How does it affect you: unable to stand or sit longer than 30 minutes Do you walk much: No Do you stand much: Yes Review of Systems ROS Narrative Marcos Duenas MD personally performed the services described in this documentation, as scribed by Tami Carbajal RDMS in my presence and it is both accurate and complete. Tami Duenas RDMS am scribing for, and in the presence of, Dr. Marcos Sahu and in the presence of the patient. Status of ROS 10 or more systems reviewed and unremark able except as noted in history and below Cardiovascular Reports: edema and swelling of feet/ankles Musculoskeletal Reports: extremity pain, extremity swelling, joint pain, joint swelling, muscle cramps and muscle weakness Integumentary/Breast Reports: rash, itching, redness and skin tenderness PFSH PFS Medical History (Updated 05/29/24 @ 14:45 by Kelly Miller RN) Phlebitis and thrombophlebitis of superficial vessels of right lower extremity ?I80.01 - Phlebitis and thrombophlebitis of superficial vessels of right lower extremity (ICD-10) Pain due to varicose veins of both lower extremities ?I83.813 - Varicose veins of bilateral lower extremities with pain (ICD-10) Hypertension ?I10 - Essential (primary) hypertension (ICD-10) Postoperative abdominal hernia ?K43.2 - Incisional hernia without obstruction or gangrene (ICD-10) 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 - Atherosclerotic heart disease of [place] coronary artery without an gifty pectoris (ICD-10) Hernia ?K46.9 - Unspecified abdominal hernia without obstruction or gangrene (ICD- 10) Hyperlipidemia ?E78.5 - Hyperlipidemia, unspecified (ICD-10) Sleep apnea ?G47.30 - Sleep apnea, unspecified (ICD-10) Surgical History (Updated 05/31/24 @ 16:09 by Kelly Miller RN) S/P sclerotherapy of varicose veins ?Z98.890 - Other specified postprocedural states (ICD-10) ?Z86.79 - Personal history of other diseases of the circulatory system (ICD- 10) H/O vein stripping ?Z98.890 - Other specified postprocedural states (ICD-10) History of medial meniscus repair of left knee ?Z98.890 - Other specified postprocedural states (ICD-10) Hx of CABG ?Z95.1 - Presence of aortocoronary bypass graft (ICD-10) History of heart artery stent ?Z95.5 - Presence of coronary angioplasty implant and graft (ICD-10) Family History (Updated 05/14/24 @ 14:58 by Kelly Miller, RN) Mother Family history of CHF (congestive heart failure) Family history of myocardial infarction Family history of hypertension Varicose veins of bilateral lower extremities with pain Father Family history of COPD (chronic obstructive pulmonary disease) Social History (Updated 05/14/24 @ 14:54 by Kelly Miller, RN) Within the past year, how often did you have a drink containing alcohol: monthly or less Smoking status: Never smoker Non-prescribed substance use: denies use Meds Home Medications and Allergies Home Medications ?Medication ?Instructions ?Recorded ?Confirmed ?Type ascorbic acid (vitamin C) 500 mg 500 mg PO DAILY 03/07/23 05/14/24 History capsule,extended release (Vitamin C) atorvastatin 80 mg tablet 80 mg PO .at bedtime 03/07/23 05/14/24 History biotin 1 mg capsule 1 mg PO DAILY 03/07/23 05/14/24 History cholecalciferol (vitamin D3) 25 4,000 unit PO BID 03/07/23 05/14/24 History mcg (1,000 unit) capsule metoprolol tartrate 25 mg tablet 12.5 mg PO Q12H 03/07/23 05/14/24 History multivitamin (Daily Multi-Vitamin 1 tab PO DAILY 03/07/23 05/14/24 History tablet) omega 3-wte-nqu-fish oil 1,000 mg 2 cap PO DAILY 03/07/23 05/14/24 History (120 mg-180 mg) capsule (Fish Oil) furosemide 40 mg tablet (Lasix) 40 mg PO BID #60 tabs 03/11/23 05/14/24 Rx potassium chloride 20 mEq 20 meq PO BID #60 tabs 03/11/23 05/14/24 Rx tablet,extended release(part/cryst) (Klor-Con M) Lactobacillus acidophilus 10 10,000 mmu cells PO DAILY 05/14/24 05/14/24 History billion cell capsule (Probacap) aspirin 81 mg tablet,delayed 81 mg PO DAILY 05/14/24 05/14/24 History release (Adult Low Dose Aspirin) diclofenac sodium 75 mg mg PO 05/14/24 History tablet,delayed release finasteride 5 mg tablet (Proscar) 5 mg PO DAILY 05/14/24 05/14/24 History saw palmetto 450 mg capsule 450 mg PO BID 05/14/24 05/14/24 History tamsulosin 0.4 mg capsule (Flomax) 0.4 mg PO DAILY 05/14/24 05/14/24 History Allergies Allergy/AdvReac Type Severity Reaction Status Date / Time No Known Drug Allergies Allergy Verified 03/07/23 16:25 Exam Narrative Exam Narrative: IMarcos MD personally performed the services described in this documentation, as scribed by Tami Carbajal RDMS in my presence and it is both accurate and complete. I, Tami Carbajal RDMS, am scribing for, and in the presence of, Dr. Marcos Sahu and in the presence of the patient. Constitutional Documenting provider has reviewed patient's vital signs: yes Common normals: oriented x3 Nutritional appearance: overweight Lymph Lymphatic: no lymphedema noted Cardio Peripheral pulses: posterior tibial pulses present and dorsalis pedis pulses present Extremity General: edema and other findings Right lower extremity: lower leg Right lower leg: inspection and palpation Left lower extremity: lower leg Left lower leg: inspection and palpation Neuro Common normals: oriented x3 Results Imaging Venous US: Radiologist's impression: Chemically induced thrombus in multiple varicose veins in right leg. Marcos Duenas MD personally performed the services described in this documentation, as scribed by Tami Carbajal RDMS in my presence and it is both accurate and complete. Tami Duenas RDMS, am scribing for, and in the presence of, Dr. Marcos Sahu and in the presence of the patient. Assessment and Plan Assessment and Plan (1) Phlebitis and thrombophlebitis of superficial vessels of right lower extremity: Plan Plan is for patient to return for Varithena/microfoam of right leg on 06/18/24. Marcos Duenas MD personally performed the services described in this documentation, as scribed by Tami Carbajal RDMS in my presence and it is both accurate and complete. Tami Duenas RDMS, am scribing for, and in the presence of, Dr. Marcos Sahu and in the presence of the patient.
--- NOTE | 2024-06-06 09:21 | W.VEIN ---
Discharge Plan Discharge Disposition: Home, Self-Care Outpatient Diagnostics: VC INJ Foam Sclerosant [employer]SEM[employer]ER (Routine) Timeframe: 3 Weeks Facility: [facility] - Location: Vein Center Ordered By: Marcos Sahu Follow Up Appointments: 06/18/24 Plan of Treatment: Varithena/microfoam of right leg Print Language: Persian Discharge Date/Time: 06/06/24 15:17
--- NOTE | 2024-06-06 14:18 | VEIN_ITS ---
Patient Name: ZABRINA BRAY MR#: [id number] : 1945 Exam Date: 06/06/2024 Ordering Doctor: DR MONI LYNN M.D. RADIOLOGY REPORT PROCEDURE: FACILITY EST LMTD [facility] - OFFICE VISIT FOLLOW UP COMPARISON: None. PROGRESS NOTES: The patient reports improvement in leg symptoms. There has been interval reduction in varicosities. The patient has followed our recommendations to walk 20-30 minutes once or twice per day since the procedure. Physical exam demonstrates some thrombosed and some compressible varicosities of the right leg. Review of the ultrasound performed the same day demonstrates occlusive thrombus and partially occlusive thrombus within the treated right leg varicosities, see separate report, consistent with a partially successful ablation. No thrombus extending into or beyond the saphenofemoral junction. The patient expressed a desire to proceed with treatment of remaining posterior right thigh varicosities prior to treatment of left leg. The patient was informed that treatment was a process and would require 2-3 procedures/sessions. VEIN/[facility] EST TD IMPRESSION: 1. Partial ablation of the right thigh varicosities. PLAN: Microfoam chemical ablation of posterior-lateral right thigh branch saphenous varicosities. Nurse notes, history and physical were reviewed and confirmed, see attached forms. The nurse was present throughout the physical exam and consultation Dictated by: Marcos Sahu M.D. on 06/06/2024 at 16:03 Approved by: Marcos Sahu M.D. on 06/06/2024 at 16:06
--- NOTE | 2024-06-06 14:18 | VEIN_ITS ---
Patient Name: ZABRINA BRAY MR#: [id number] : 1945 Exam Date: 06/06/2024 Ordering Doctor: DR MONI LYNN M.D. RADIOLOGY REPORT PROCEDURE: VC EXT VENOUS RT LMTD COMPARISON: None. INDICATIONS: I80.01 - Phlebitis and thrombophlebitis of superficial veins right leg TECHNIQUE: Lower extremity mendez scale and Duplex Doppler evaluation of the deep venous system from the inguinal ligament through the calf veins. FINDINGS: REGION: Right lower extremity. THROMBI: Negative for DVT. Chemically induced thrombus in multiple varicose veins in right leg. COMPRESSIBILITY: Non-compressible & partially compressible segments. Non-compressible segments corresponding to thrombus FLOW: Areas of no flow corresponding to thrombus OTHER: Multiple large patent varicose veins remain. CONCLUSION: 1. Mixed occlusion and partial occlusion of treated branch saphenous varicosities within right leg. Dictated by: Marcos Sahu M.D. on 06/06/2024 at 16:00 Approved by: Marcos Sahu M.D. on 06/06/2024 at 16:03
== END 2024-06-06 15:17 | disposition home or self-care (01) ==
PROVIDERS: PCP Radiology Diagnostic Radiology; Visit Provider Radiology Diagnostic Radiology
DX: I80.01 Phlebitis and thrombophlebitis of superficial vessels of right lower extremity (principal)
CPT/HCPCS: 93971; G0463

== ENCOUNTER 2024-06-18 13:47 | Outpatient (OUT) | payer MEDICARE, OTHER, SELFPAY ==
--- NOTE | 2024-06-18 07:28 | V.VEINS.HP ---
Vital Signs 06/18/24 15:01 BP 140/78 BP Location Right Brachial BP Position Sitting BP Cuff Size Large Adult BP Source Manual Cuff Respiration 18 Pulse 60 Pulse Source Monitor Pulse Oximetry (%) 98 Oxygen Delivery Method Room Air Comment The patient's blood pressure is elevated. Varicose Veins Patient in today for microfoam chemical ablation right leg Marcos Duenas MD personally performed the services described in this documentation, as scribed by Ranjan Ceballos RN in my presence and it is both accurate and complete. Ranjan Duenas RN, am scribing for, and in the presence of, Dr. Marcos Sahu and in the presence of the patient. aching, burning, cramping, dull, sharp and tender 8 3 months Worsened in recent months: Yes standing and sitting analgesics, elevating extremities and compression stockings Reports muscle spasms of leg, erythema, fatigue, heaviness, pruritus, limb pain, edema and leg edema History of lower extremity trauma: No Superficial thrombophlebitis: No Family history of varicose veins: yes Has patient had previous lower extremity venous surgery: Yes Patient has previously received the following treatment(s) for lower extremity varicose veins: Reports phlebectomy, sclerotherapy, foam therapy and laser therapy Does patient have a history of : not applicable Does patient intend to have future pregnancies: not applicable Has patient had lower extremity venous scan with relux testing: Yes Support hose used: Yes Problems walking or doing physical activity: Yes How does it affect you: unable to stand or sit longer than 30 minutes Do you walk much: No Do you stand much: Yes Review of Systems ROS Narrative Marcos Duenas MD personally performed the services described in this documentation, as scribed by Ranjan Ceballos RN in my presence and it is both accurate and complete. Ranjan Duenas RN, am scribing for, and in the presence of, Dr. Marcos Sahu and in the presence of the patient. Status of ROS 10 or more systems reviewed and unremarkable except as noted in history and below Cardiovascular Reports: edema and swelling of feet/ankles Musculoskeletal Reports: extremity pain, extremity swelling, joint pain, joint swelling, muscle cramps and muscle weakness Integumentary/Breast Reports: rash, itching, redness and skin tenderness [facility] Medical History (Updated 12/10/24 @ 14:45 by Kelly Miller RN) Phlebitis and thrombophlebitis of superficial vessels of right lower extremity ?I80.01 - Phlebitis and thrombophlebitis of superficial vessels of right lower extremity (ICD-10) Pain due to varicose veins of both lower extremities ?I83.813 - Varicose veins of bilateral lower extremities with pain (ICD-10) Hypertension ?I10 - Essential (primary) hypertension (ICD-10) Postoperative abdominal hernia ?K43.2 - Incisional hernia without obstruction or gangrene (ICD-10) 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 - Atherosclerotic heart disease of [place] coronary artery without angina pectoris (ICD-10) Hernia ?K46.9 - Unspecified abdominal hernia without obstruction or gangrene (ICD-10) Hyperlipidemia ?E78.5 - Hyperlipidemia, unspecified (ICD-10) Sleep apnea ?G47.30 - Sleep apnea, unspecified (ICD-10) Surgical History (Updated 06/18/24 @ 15:02 by Ranjan Ceballos) S/P sclerotherapy of varicose veins ?Z98.890 - Other specified postprocedural states (ICD-10) ?Z86.79 - Personal history of other diseases of the circulatory system (ICD-10) H/O vein stripping ?Z98.890 - Other specified postprocedural states (ICD-10) History of medial meniscus repair of left knee ?Z98.890 - Other specified postprocedural states (ICD-10) Hx of CABG ?Z95.1 - Presence of aortocoronary bypass graft (ICD-10) History of heart artery stent ?Z95.5 - Presence of coronary angioplasty implant and graft (ICD-10) Family History (Updated 05/14/24 @ 14:58 by Kelly Miller, RN) Mother Family history of CHF (congestive heart failure) Family history of myocardial infarction Family history of hypertension Varicose veins of bilateral lower extremities with pain Father Family history of COPD (chronic obstructive pulmonary disease) Social History (Updated 05/14/24 @ 14:54 by Kelly Miller, RN) Within the past year, how often did you have a drink containing alcohol: monthly or less Smoking status: Never smoker Non-prescribed substance use: denies use Meds Home Medications and Allergies Home Medications ?Medication ?Instructions ?Recorded ?Confirmed ?Type ascorbic acid (vitamin C) 500 mg 500 mg PO DAILY 03/07/23 05/14/24 History capsule,extended release (Vitamin C) atorvastatin 80 mg tablet 80 mg PO .at bedtime 03/07/23 05/14/24 History biotin 1 mg capsule 1 mg PO DAILY 03/07/23 05/14/24 History cholecalciferol (vitamin D3) 25 4,000 unit PO BID 03/07/23 05/14/24 History mcg (1,000 unit) capsule metoprolol tartrate 25 mg tablet 12.5 mg PO Q12H 03/07/23 05/14/24 History multivitamin (Daily Multi-Vitamin 1 tab PO DAILY 03/07/23 05/14/24 History tablet) omega 9-omn-uvc-fish oil 1,000 mg 2 cap PO DAILY 03/07/23 05/14/24 History (120 mg-180 mg) capsule (Fish Oil) furosemide 40 mg tablet (Lasix) 40 mg PO BID #60 tabs 03/11/23 05/14/24 Rx potassium chloride 20 mEq 20 meq PO BID #60 tabs 03/11/23 05/14/24 Rx tablet,extended release(part/cryst) (Klor-Con M) Lactobacillus acidophilus 10 10,000 mmu cells PO DAILY 05/14/24 05/14/24 History billion cell capsule (Probacap) aspirin 81 mg tablet,delayed 81 mg PO DAILY 05/14/24 05/14/24 History release (Adult Low Dose Aspirin) diclofenac sodium 75 mg mg PO 05/14/24 History tablet,delayed release finasteride 5 mg tablet (Proscar) 5 mg PO DAILY 05/14/24 05/14/24 History saw palmetto 450 mg capsule 450 mg PO BID 05/14/24 05/14/24 History tamsulosin 0.4 mg capsule (Flomax) 0.4 mg PO DAILY 05/14/24 05/14/24 History Allergies Allergy/AdvReac Type Severity Reaction Status Date / Time No Known Drug Allergies Allergy Verified 03/07/23 16:25 Exam Narrative Exam Narrative: IMarcos MD personally performed the services described in this documentation, as scribed by Ranjan Ceballos RN in my presence and it is both accurate and complete. IRanjan RN, am scribing for, and in the presence of, Dr. Marcos Sahu and in the presence of the patient. Constitutional Documenting provider has reviewed patient's vital signs: yes Common normals: oriented x3 Nutritional appearance: overweight Lymph Lymphatic: no lymphedema noted Cardio Peripheral pulses: posterior tibial pulses present and dorsalis pedis pulses present Extremity General: edema and other findings Right lower extremity: lower leg Right lower leg: inspection and palpation Left lower extremity: lower leg Left lower leg: inspection and palpation Neuro Common normals: oriented x3 Assessment and Plan Assessment and Plan (1) Pain due to varicose veins of both lower extremities: Plan f/u evaluation with physician along with right leg limited u/s Marcos Duenas MD personally performed the services described in this documentation, as scribed by Ranjan Ceballos RN in my presence and it is both accurate and complete. Ranjan Duenas RN, am scribing for, and in the presence of, Dr. Marcos Sahu and in the presence of the patient. Procedures Procedure Instructions Procedures leg microfoam chemical ablation/Varithena: Risks and benefits of the procedure were discussed at length and informed written consent was obtained.? Time-out procedure was performed and the correct patient and procedure were confirmed.? Staff present during time-out: Ranjan Ceballos RN and Marcos Sahu MD.? Patient prepped and procedure performed in usual sterile fashion.? Patient was placed in Trendelenburg prior to Polidocanol/Varithena injections. Sclerosing Agent:?? 15cc 1% Polidocanol/Varithena Site Injected: Right lecc varithena administered in to a 4mm varicose vein distal anterior lower leg with pressure applied to perforating vein proximal medial lower leg 5cc varithena administered in to a 5mm varicose vein medial knee with pressure applied to perforating vein approximately 5cm distal to administration site 5cc varithen administered in to a 4.5mm varicose vein mid posterior upper leg Number of Injections:? 3 The patient tolerated the procedure well without complication.? Hemostasis was obtained and thigh-high compression stocking was applied with foam pads.? Instructed patient to wear stocking for at least 96 hours and sleep with it and only remove for showering.? The patient was instructed to? wear stocking for 2 weeks.? Patient verbalizes understanding and states they will comply.? Patient was given post-procedure instructions. Patient was discharged in good condition.? Scheduled to undergo limited venous ultrasound and? exam on 06/25/2023. IMarcos MD personally performed the services described in this documentation, as scribed by Ranjan Ceballos RN in my presence and it is both accurate and complete. I, Ranjan Ceballos RN, am scribing for, and in the presence of, Dr. Marcos Sahu and in the presence of the patient.
--- NOTE | 2024-06-18 07:31 | W.VEIN ---
Discharge Plan Discharge Disposition: Home, Self-Care Follow Up Appointments: 06/25/2023 Plan of Treatment: f/u evaluation with physician along with right leg limited u/s Patient Instructions: Polidocanol (By injection) (Idalia Olguin) Print Language: Spanish Discharge Date/Time: 06/18/24 15:50
--- NOTE | 2024-06-18 13:59 | VEIN_ITS ---
[address] [address] Patient Name: ZABRINA BRAY MRN: [id number] date: 1945 Sex: M Assigned Patient Location: Current Patient Location: Accession/Order Number: [id number] Exam Date: 06/18/2024 13:59 Report Date: 06/18/2024 15:15 At the request of: SAHIL LEROY Procedure: VC INJ Foam Sclerosant WUS MULTIFOLD OPERATOR PROCEDURE: VC INJ Foam Sclerosant WUS MULTIFOLD OPERATOR HISTORY: I83.813 - Varicose veins of bilateral lower extremities w... Pre-operative Diagnosis: CEAP class C4a venous insufficiency with pain, tenderness, edema and incompetent branch saphenous vein(s), chronic venous insufficiency right leg secondary to venous incompetence Post-operative Diagnosis: CEAP class C4 venous insufficiency with pain, tenderness, edema and incompetent branch saphenous vein(s), chronic venous insufficiency right leg secondary to venous incompetence Procedure Performed: 1. Ultrasound-guided microfoam chemical ablation with Varithenaregistered 2. Intraoperative ultrasound guidance Physician: Sahil Leroy M.D. Anesthesia: None Indications for Procedure: 78 year old male. Symptoms including lower extremity pain, swelling, dilated bulging veins for many years despite conservative medical therapy including medical compression stockings, exercise and analgesics. Prior procedures include microfoam chemical ablation. Multiple incompetent varicosities of the right leg. Duplex scan showed reflux and enlarged diameters up to 5 mm. The patient underwent informed consent including management options where the complications of infection, bleeding, pain, and skin injury were discussed. Particular attention was spent discussing thrombus extension and deep vein thrombosis as well as the possibility of pulmonary embolus and treatment with oral or injectable blood thinners. Procedure: The patient walked to the procedure room. All applicable staff donned appropriate apparel. A procedure timeout was performed to confirm correct patient, correct extremity, correct procedure, and correct room set-up including presence of all applicable supplies, devices, and drugs. A duplex ultrasound, performed by myself confirmed the location and incompetence of branch saphenous varicosities and their course was marked on the skin together with the dilated tributaries. The extent of treatment of the vein and the associated varicosities was determined through ultrasound mapping. The skin was prepped and then punctured with a butterfly needle and advanced under ultrasound guidance. The Varithenaregistered canister was activated and the canister was primed and purged as required in the instructions for use. Varithenaregistered was drawn into a sterile syringe. Varithenaregistered was slowly administered at 0.5-1.0 cc/second with close observation by ultrasound of its course in the vessels. Total volume utilized was: 15 mL (5 mL into a 4 mm varicosity distal lower leg with pressure applied to novelty dipper vein within proximal medial lower leg; 5 mL into a 5 mm varicosity medial to the knee with pressure applied to novelty dipper vein proximally 5 mm distal to the site; 5 mL into a 4 mm varicosity mid posterior upper leg). Following administration of Varithenaregistered the leg was elevated and the patient was asked to repeatedly dorsiflex the ankle to limit flow of Varithenaregistered into perforating veins. Once appropriate spasm had been confirmed in the treated veins, the vascular catheter was removed from the leg and light pressure was applied over the puncture site for hemostasis. The common femoral and deep superficial veins were then evaluated for flow and compressibility prior to dressing placement. The lower extremity was kept elevated at 45 degrees above the horizontal and cording material was applied over the saphenous segments and tributaries to allow for eccentric compression over the target vessels including the targeted saphenous vein(s). A multilayer dressing was applied consisting of foam pads, coban and thigh-high 20-30 mm Hg compression elastic support hose were placed on the patient. The leg was lowered only after compression had been applied and the patient was immediately ambulatory. The patient ambulated 10 minutes under supervision and was without apparent concerns at time of release. Post-care instructions include advising patient to keep post-treatment bandages in place and dry for 48 hours, avoid extended periods of inactivity, avoid heavy exercise for one week, wear compression stockings on the treated leg continuously for two weeks, to walk daily for 10 minutes over the next month. The patient was instructed to take an anti-inflammatory medicine as needed and to follow up for color duplex scan of the Saphenous veins, the treated branch saphenous varicosities, the adjacent deep veins, and additional treatment within 7 days. PERSONNEL: Ranjan Ceballos RN Electronically authenticated by: SAHIL LEROY Date: 06/18/2024 15:15
[2024-06-18 15:01] VITALS: BP 140/78; PULSE 60; O2SAT 98
== END 2024-06-18 15:50 | disposition home or self-care (01) ==
LOC: VC 13:58
PROVIDERS: PCP Radiology Diagnostic Radiology; Visit Provider Radiology Diagnostic Radiology
DX: I83.813 Varicose veins of bilateral lower extremities with pain (principal)
CPT/HCPCS: 36466

== ENCOUNTER 2024-06-25 14:28 | Outpatient (OUT) | payer MEDICARE, OTHER, SELFPAY ==
--- NOTE | 2024-06-25 14:33 | VEIN_ITS ---
Patient Name: ZABRINA BRAY MR#: [id number] : 1945 Exam Date: 06/25/2024 Ordering Doctor: DR SAHIL LEROY M.D. RADIOLOGY REPORT PROCEDURE: VC EXT VENOUS RT LMTD COMPARISON: VC EXT VENOUS RT LMTD, 06/06/2024. INDICATIONS: I80.01 - Phlebitis and thrombophlebitis of superficial ve... TECHNIQUE: Lower extremity mendez scale and Duplex Doppler evaluation of the deep venous system from the inguinal ligament through the calf veins. FINDINGS: REGION: Right lower extremity. THROMBI: Negative for DVT. Varithena induced thrombus visualized at ant/dist calf, med knee, and dist/post thigh. COMPRESSIBILITY: Non-compressible segments corresponding to thrombus FLOW: Areas of no flow corresponding to thrombus OTHER: No patent varicose veins remain. CONCLUSION: Post ablation occlusion of treated right leg varicose veins with no deep vein thrombus. No residual varicose veins Dictated by: Faroqo Cheek MD on 06/25/2024 at 15:09 Approved by: Farooq Cheek MD on 06/25/2024 at 15:22
--- NOTE | 2024-06-25 14:33 | VEIN_ITS ---
Patient Name: ZABRINA BRAY MR#: [id number] : 1945 Exam Date: 06/25/2024 Ordering Doctor: DR SAHIL LEROY M.D. RADIOLOGY REPORT PROCEDURE: [facility] EST LMTD [facility] - OFFICE VISIT FOLLOW UP COMPARISON: [facility], 06/06/2024. PROGRESS NOTES: The patient reports no significant problem following micro foam chemical ablation of right leg incompetent varicose veins. The patient did not require oral analgesics. The patient did wear his compression stocking. Physical exam demonstrates multiple thrombosed varicose veins. Some mild subcutaneous edema remains, slightly improved from the initial exam. No residual varicose veins period reticular and spider veins in the ankle and feet. Review of the ultrasound performed the same day demonstrates occlusive thrombus extending throughout the treated right leg varicose veins. No deep vein thrombus. No residual right leg varicose veins. There are multiple left leg varicose veins. The patient has only mild pain in the left leg at this time and did not to treatment of varicose veins. The patient's treatment plan is therefore complete. The patient was asked to return as necessary or [facility] 1-2 [facility]: 1. Successful ablation of treated right leg varicose veins with no deep vein thrombus 2. Persistent left leg varicose veins. PLAN: The patient did not want any further treatments, therefore his treatment is now complete. Follow-up as necessary or in 1-2 years Nurse notes, history and physical were reviewed and confirmed, see attached forms. The nurse was present throughout the physical exam and consultation Dictated by: Farooq Cheek MD on 06/25/2024 at 15:22 Approved by: Farooq Cheek MD on 06/25/2024 at 15:24
--- NOTE | 2024-06-25 15:00 | V.VEINS.HP ---
Varicose Veins Patient in today for follow up ultrasound post microfoam chemical ablation right leg Farooq Duenas MD personally performed the services described in this documentation, as scribed by Evonne Kirk RVT, RDMS in my presence and it is both accurate and complete. Evonne Duenas RVT, RDMS, am scribing for, and in the presence of, Dr. Farooq Cheek and in the presence of the patient. aching, burning, cramping, dull, sharp and tender 8 3 months Worsened in recent months: Yes standing and sitting analgesics, elevating extremities and compression stockings Reports muscle spasms of leg, erythema, fatigue, heaviness, pruritus, limb pain, edema and leg edema History of lower extremity trauma: No Superficial thrombophlebitis: No Family history of varicose veins: yes Has patient had previous lower extremity venous surgery: Yes Patient has previously received the following treatment(s) for lower extremity varicose veins: Reports phlebectomy, sclerotherapy, foam therapy and laser therapy Does patient have a history of : not applicable Does patient intend to have future pregnancies: not applicable Has patient had lower extremity venous scan with relux testing: Yes Support hose used: Yes Problems walking or doing physical activity: Yes How does it affect you: unable to stand or sit longer than 30 minutes Do you walk much: No Do you stand much: Yes Review of Systems ROS Narrative Farooq Duenas MD personally performed the services described in this documentation, as scribed by Evonne Kirk RVT, RDMS in my presence and it is both accurate and complete. IEvonne RVT, RDMS, am scribing for, and in the presence of, Dr. Farooq Cheek and in the presence of the patient. Status of ROS 10 or more systems reviewed and unremarkable except as noted in history and below Cardiovascular Reports: edema and swelling of feet/ankles Musculoskeletal Reports: extremity pain, extremity swelling, joint pain, joint swelling, muscle cramps and muscle weakness Integumentary/Breast Reports: rash, itching, redness and skin tenderness [facility] Medical History (Updated 05/29/24 @ 14:45 by Kelly Miller RN) Phlebitis and thrombophlebitis of superficial vessels of right lower extremity ?I80.01 - Phlebitis and thrombophlebitis of superficial vessels of right lower extremity (ICD-10) Pain due to varicose veins of both lower extremities ?I83.813 - Varicose veins of bilateral lower extremities with pain (ICD-10) Hypertension ?I10 - Essential (primary) hypertension (ICD-10) Postoperative abdominal hernia ?K43.2 - Incisional hernia without obstruction or gangrene (ICD-10) 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 - Atherosclerotic heart disease of [place] coronary artery without angina pectoris (ICD-10) Hernia ?K46.9 - Unspecified abdominal hernia without obstruction or gangrene (ICD-10) Hyperlipidemia ?E78.5 - Hyperlipidemia, unspecified (ICD-10) Sleep apnea ?G47.30 - Sleep apnea, unspecified (ICD-10) Surgical History (Updated 06/18/24 @ 15:02 by Ranjan Ceballos) S/P sclerotherapy of varicose veins ?Z98.890 - Other specified postprocedural states (ICD-10) ?Z86.79 - Personal history of other diseases of the circulatory system (ICD-10) H/O vein stripping ?Z98.890 - Other specified postprocedural states (ICD-10) History of medial meniscus repair of left knee ?Z98.890 - Other specified postprocedural states (ICD-10) Hx of CABG ?Z95.1 - Presence of aortocoronary bypass graft (ICD-10) History of heart artery stent ?Z95.5 - Presence of coronary angioplasty implant and graft (ICD-10) Family History (Updated 05/14/24 @ 14:58 by Kelly Miller RN) Mother Family history of CHF (congestive heart failure) Family history of myocardial infarction Family history of hypertension Varicose veins of bilateral lower extremities with pain Father Family history of COPD (chronic obstructive pulmonary disease) Social History (Updated 05/14/24 @ 14:54 by Kelly Miller RN) Within the past year, how often did you have a drink containing alcohol: monthly or less Smoking status: Never smoker Non-prescribed substance use: denies use Meds Home Medications and Allergies Home Medications ?Medication ?Instructions ?Recorded ?Confirmed ?Type ascorbic acid (vitamin C) 500 mg 500 mg PO DAILY 03/07/23 05/14/24 History capsule,extended release (Vitamin C) atorvastatin 80 mg tablet 80 mg PO .at bedtime 03/07/23 05/14/24 History biotin 1 mg capsule 1 mg PO DAILY 03/07/23 05/14/24 History cholecalciferol (vitamin D3) 25 4,000 unit PO BID 03/07/23 05/14/24 History mcg (1,000 unit) capsule metoprolol tartrate 25 mg tablet 12.5 mg PO Q12H 03/07/23 05/14/24 History multivitamin (Daily Multi-Vitamin 1 tab PO DAILY 03/07/23 05/14/24 History tablet) omega 7-kbv-thj-fish oil 1,000 mg 2 cap PO DAILY 03/07/23 05/14/24 History (120 mg-180 mg) capsule (Fish Oil) furosemide 40 mg tablet (Lasix) 40 mg PO BID #60 tabs 03/11/23 05/14/24 Rx potassium chloride 20 mEq 20 meq PO BID #60 tabs 03/11/23 05/14/24 Rx tablet,extended release(part/cryst) (Klor-Con M) Lactobacillus acidophilus 10 10,000 mmu cells PO DAILY 05/14/24 05/14/24 History billion cell capsule (Probacap) aspirin 81 mg tablet,delayed 81 mg PO DAILY 05/14/24 05/14/24 History release (Adult Low Dose Aspirin) diclofenac sodium 75 mg mg PO 05/14/24 History tablet,delayed release finasteride 5 mg tablet (Proscar) 5 mg PO DAILY 05/14/24 05/14/24 History saw palmetto 450 mg capsule 450 mg PO BID 05/14/24 05/14/24 History tamsulosin 0.4 mg capsule (Flomax) 0.4 mg PO DAILY 05/14/24 05/14/24 History Allergies Allergy/AdvReac Type Severity Reaction Status Date / Time No Known Drug Allergies Allergy Verified 03/07/23 16:25 Exam Narrative Exam Narrative: IFarooq MD personally performed the services described in this documentation, as scribed by Evonne Kirk RVT, RDMS in my presence and it is both accurate and complete. IEvonne RVT, RDMS, am scribing for, and in the presence of, Dr. Farooq Cheek and in the presence of the patient. 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 Assessment and Plan Assessment and Plan (1) Phlebitis and thrombophlebitis of superficial vessels of right lower extremity: Plan Patient in today for follow up ultrasound of lower extremity following treatment of Varithena/microfoam. IFarooq MD personally performed the services described in this documentation, as scribed by Evonne Kirk RVT, RDMS in my presence and it is both accurate and complete. Evonne Duenas RVT, RDMS, am scribing for, and in the presence of, Dr. Farooq Cheek and in the presence of the patient.
--- NOTE | 2024-06-25 15:04 | P.DS_ITS ---
Discharge Plan Discharge Disposition: Home, Self-Care Discharge Medications: No Action atorvastatin 80 mg tablet 80 mg PO .at bedtime metoprolol tartrate 25 mg tablet 12.5 mg PO Q12H biotin 1 mg capsule 1 mg PO DAILY omega 0-rla-ydu-fish oil [Fish Oil] 1,000 mg (120 mg-180 mg) capsule 2 cap PO DAILY multivitamin [Daily Multi-Vitamin] Tablet 1 tab PO DAILY ascorbic acid (vitamin C) [Vitamin C] 500 mg capsule, extended release 500 mg PO DAILY cholecalciferol (vitamin D3) 25 mcg (1,000 unit) capsule 4,000 unit PO BID furosemide [Lasix] 40 mg tablet 40 mg PO BID Qty: 60 11RF potassium chloride [Klor-Con M20] 20 mEq tablet,ER particles/crystals 20 meq PO BID Qty: 60 11RF tamsulosin [Flomax] 0.4 mg capsule 0.4 mg PO DAILY aspirin [Adult Low Dose Aspirin] 81 mg tablet,delayed release (DR/EC) 81 mg PO DAILY diclofenac sodium 75 mg tablet,delayed release (DR/EC) PO finasteride [Proscar] 5 mg tablet 5 mg PO DAILY Probacap 10 billion cell capsule 10,000 mmu cells PO DAILY saw palmetto 450 mg capsule 450 mg PO BID Rx Instructions: give with food (meal/snack) Plan of Treatment: The patient is currently done with treatment and will call and return if new problems or symptoms occur. Print Language: Sinhala Discharge Date/Time: 06/25/24 15:08
== END 2024-06-25 15:08 | disposition home or self-care (01) ==
PROVIDERS: PCP Radiology Diagnostic Radiology; Visit Provider Radiology Diagnostic Radiology
DX: I80.01 Phlebitis and thrombophlebitis of superficial vessels of right lower extremity (principal)
CPT/HCPCS: 93971; G0463